=== PATIENT | male | born 1955 | race Hispanic/Latino ===

== ENCOUNTER 2022-05-17 07:38 | Day surgery (SDC) | payer OTHER ==
[2022-05-15 13:13] LABS: BASOPHILS % (AUTO) 0.5 % (0.0-5.0); EOSINOPHILS % (AUTO) 1.5 % (0.0-8.0); HEMATOCRIT 39.7 % (42-54); LYMPHOCYTES % (AUTO) 22.1 % (21.0-51.0); MEAN CORPUSCULAR HEMOGLOBIN 27.7 pg (27.0-33.0); MEAN CORPUSCULAR HGB CONC 31.7 g/dL (32.0-36.0); MEAN CORPUSCULAR VOLUME 87.3 fL (79-99); MONOCYTES % (AUTO) 6.4 % (3.0-13.0); NEUTROPHILS % (AUTO) 69.1 % (40.0-77.0); PLATELET COUNT (AUTO) 168 K/uL (130-400); RED BLOOD CELL COUNT(AUTO) 4.55 MIL/uL (4.50-6.20); RED CELL DISTRIBUTION WIDTH 13.8 % (11.0-15.5); WHITE BLOOD COUNT (AUTO) 7.8 K/uL (4.8-10.8)
[2022-05-15 13:19] LABS: APPEARANCE,URINE CLEAR (CLEAR); BILIRUBIN,URINE NEGATIVE (NEGATIVE); COLOR,URINE YELLOW (YELLOW); GLUCOSE, URINE (UA) >=1000 mg/dL (NEGATIVE); KETONES,URINE NEGATIVE (NEGATIVE); LEUKOCYTE ESTERASE ,URINE NEGATIVE (NEGATIVE); NITRATE,URINE NEGATIVE (NEGATIVE); OCCULT BLOOD,URINE SMALL (NEGATIVE); PROTEIN,URINE 100 mg/dL (NEGATIVE); UROBILINOGEN,URINE 0.2 mg/dL (0.2-1.0)
[2022-05-15 13:22] LABS: INR 0.96 (0.85-1.15); PROTHROMBIN TIME 10.5 SEC (9.6-11.6)
[2022-05-15 13:23] LABS: PARTIAL THROMBOPLASTIN TIME 24.8 SEC (26.3-35.5)
[2022-05-15 13:29] LABS: CREATININE 1.9 mg/dL (0.5-1.5); POTASSIUM 4.5 mmol/L (3.5-5.1)
[2022-05-15 13:42] LABS: B-TYPE NATRIURETIC PEPTIDE 277 pg/mL (0-100)
[2022-05-15 14:06] LABS: BACTERIA,URINE Rare /HPF (None Seen); RBC,URINE None Seen /HPF (0-1); SQUAMOUS EPITHELIAL CELL,UR 0-2 /HPF (0-2); WBC,URINE None Seen /HPF (0-1)
[2022-05-16 10:40] VITALS: BP 190/90
[~2022-05-17] VITALS: Ht 167.6 cm; Wt 86.1 kg
[2022-05-17] VITALS (10 sets, daily range): BP systolic 127–152; BP diastolic 52–79
[~2022-05-17 07:38] MED LIST: 0.9% NACL 500ML IV.SOLN 500 ML IV SCH; ATOR40TA69 PO; CILO100T PO; CLOP75TA32 PO; DAPA10TA PO; HUM10VIA6 SQ; INS7030 SQ; LISI2.5T13 PO; METF-444 PO
[2022-05-17] MEDS ORDERED: 0.9%NACL 1000ML 1,000 ML IV ONE (08:24)
[2022-05-17] MEDS ORDERED: FENTANYL CITRATE PF 50 MCG/1 ML 2ML VIAL ONE (11:15)
[2022-05-17] MEDS ORDERED: NITROGLYCERIN 50MG VIAL ONE (11:15)
[2022-05-17] MEDS ORDERED: IODIXANOL 320 MG/ML 100 ML VIAL ONE (11:15)
[2022-05-17] MEDS ORDERED: MIDAZOLAM HCL 1 MG/ML 2ML VIAL ONE (11:15)
[2022-05-17] MEDS ORDERED: LIDOCAINE HCL 400MG/20ML VIAL ONE (11:16)
[2022-05-17] MEDS ORDERED: DEXTROSE 50%-WATER 50 ML DISP.SYRIN IV PRN (13:30)
[2022-05-17] MEDS ORDERED: 0.9%NACL 1000ML 1,000 ML IV SCH (13:30)
[2022-05-17] MEDS ORDERED: GLUCAGON 1MG KIT 1 MG ML IM PRN (13:30)
== END 2022-05-17 17:50 | disposition home or self-care (01) ==
LOC: DAH 07:38
PROVIDERS: ATTEND Internal Medicine
DX: I70.211 Atherosclerosis of native arteries of extremities with intermittent claudication, right leg (principal); I25.10 Atherosclerotic heart disease of native coronary artery without angina pectoris; E11.51 Type 2 diabetes mellitus with diabetic peripheral angiopathy without gangrene; E11.22 Type 2 diabetes mellitus with diabetic chronic kidney disease; I12.9 Hypertensive chronic kidney disease with stage 1 through stage 4 chronic kidney disease, or unspecified chronic kidney disease; N18.30 Chronic kidney disease, stage 3 unspecified; E66.9 Obesity, unspecified; I44.7 Left bundle-branch block, unspecified; E78.5 Hyperlipidemia, unspecified; Z79.899 Other long term (current) drug therapy; Z79.01 Long term (current) use of anticoagulants; Z79.4 Long term (current) use of insulin; Z79.82 Long term (current) use of aspirin; Z68.31 Body mass index [BMI] 31.0-31.9, adult; Z95.0 Presence of cardiac pacemaker; Z82.49 Family history of ischemic heart disease and other diseases of the circulatory system
CPT/HCPCS: 80048; 83880; 85025; 85610; 85730; 81001; 36415; 71045; 93005; 75716; 36246; 82948 ×2; C1887; C1894 ×2; C1769; J3010; J3490 ×2; J7030; J2250; J1644; Q9967; A4215; A4222; A4221; A4663; A4216; A4606; A4223 ×3; 75630; 96360; 96361; 99156; 99157

== ENCOUNTER → 2022-11-20 | Outpatient (CLI) | payer OTHER ==
[~2022-11-20] MED LIST changes: -0.9% NACL 500ML IV.SOLN 500 ML IV SCH; +ASPI-1012 PO; -CILO100T PO; -CLOP75TA32 PO; +DULO30CA52 PO; -LISI2.5T13 PO; +LISI20TA24 PO; +REGADENOSON 0.4 MG/5 ML PF SYG IVP SCH; +RIVA2.5T PO
== END | disposition home or self-care (01) ==
LOC: SHCH 07:50
PROVIDERS: ATTEND Internal Medicine Cardiovascular Disease
DX: I11.0 Hypertensive heart disease with heart failure (principal); I50.20 Unspecified systolic (congestive) heart failure; R94.39 Abnormal result of other cardiovascular function study; I25.10 Atherosclerotic heart disease of native coronary artery without angina pectoris; I73.9 Peripheral vascular disease, unspecified; E78.5 Hyperlipidemia, unspecified; E11.9 Type 2 diabetes mellitus without complications; E66.9 Obesity, unspecified; Z68.32 Body mass index [BMI] 32.0-32.9, adult; Z95.1 Presence of aortocoronary bypass graft; Z79.01 Long term (current) use of anticoagulants; Z79.899 Other long term (current) drug therapy
CPT/HCPCS: 78452; 96374; 93017; J2785; A9500 ×2

== ENCOUNTER → 2023-01-24 | Outpatient (CLI) | payer OTHER ==
[~2023-01-24] MED LIST changes: -DAPA10TA PO; -HUM10VIA6 SQ; -LISI20TA24 PO; +METO25TA3 PO; -REGADENOSON 0.4 MG/5 ML PF SYG IVP SCH; -RIVA2.5T PO
[2023-01-24 12:30] LABS: CREATININE 2.5 mg/dL (0.5-1.5); POTASSIUM 3.8 mmol/L (3.5-5.1)
== END | disposition home or self-care (01) ==
LOC: LAB 09:37
PROVIDERS: ATTEND Internal Medicine Cardiovascular Disease
DX: I50.22 Chronic systolic (congestive) heart failure (principal)
CPT/HCPCS: 36415; 80048

== ENCOUNTER → 2023-03-07 | Outpatient (CLI) | payer OTHER | END | disposition home or self-care (01) | LOC: SHCH 08:19 | PROVIDERS: ATTEND Internal Medicine Cardiovascular Disease | DX: I11.9 Hypertensive heart disease without heart failure (principal); I50.21 Acute systolic (congestive) heart failure; E78.5 Hyperlipidemia, unspecified | CPT/HCPCS: 93306 ==

== ENCOUNTER → 2023-04-04 | Outpatient (CLI) | payer OTHER ==
[2023-04-04 12:54] LABS: CREATININE 2.4 mg/dL (0.5-1.5)
[2023-04-04 12:59] LABS: POTASSIUM 6.7 mmol/L (3.5-5.1)
== END | disposition home or self-care (01) ==
LOC: LAB 09:43
PROVIDERS: ATTEND Internal Medicine Cardiovascular Disease
DX: I50.22 Chronic systolic (congestive) heart failure (principal); I50.21 Acute systolic (congestive) heart failure
CPT/HCPCS: 36415; 80048; 83880

== ENCOUNTER → 2023-04-10 | Outpatient (CLI) | payer OTHER ==
[2023-04-10 16:30] LABS: CREATININE 2.9 mg/dL (0.5-1.5); POTASSIUM 5.6 mmol/L (3.5-5.1)
== END | disposition home or self-care (01) ==
LOC: LAB 15:00
PROVIDERS: ATTEND Internal Medicine Cardiovascular Disease
DX: I25.10 Atherosclerotic heart disease of native coronary artery without angina pectoris (principal); I10 Essential (primary) hypertension
CPT/HCPCS: 36415; 80048

== ENCOUNTER → 2023-07-04 | Outpatient (CLI) | payer OTHER ==
[2023-07-04 12:40] LABS: CREATININE 2.6 mg/dL (0.5-1.5)
[2023-07-04 12:45] LABS: POTASSIUM 6.3 mmol/L (3.5-5.1)
== END | disposition home or self-care (01) ==
LOC: LAB 09:56
PROVIDERS: ATTEND Internal Medicine Cardiovascular Disease
DX: I50.22 Chronic systolic (congestive) heart failure (principal)
CPT/HCPCS: 36415; 80048; 83880

== ENCOUNTER → 2024-07-21 | Outpatient (CLI) | payer OTHER ==
[~2024-07-21] MED LIST changes: +FURO20TA4 PO
== END | disposition home or self-care (01) ==
LOC: SHCH 09:33
PROVIDERS: ATTEND Internal Medicine Cardiovascular Disease
DX: I87.2 Venous insufficiency (chronic) (peripheral) (principal); I73.9 Peripheral vascular disease, unspecified
CPT/HCPCS: 93925; 93970

== ENCOUNTER → 2024-09-23 | Outpatient (CLI) | payer OTHER | END | disposition home or self-care (01) | LOC: SHCH 13:57 | PROVIDERS: ATTEND Internal Medicine Cardiovascular Disease | DX: I25.10 Atherosclerotic heart disease of native coronary artery without angina pectoris (principal); R06.09 Other forms of dyspnea | CPT/HCPCS: 93306 ==

== ENCOUNTER → 2024-10-27 | Outpatient (CLI) | payer OTHER ==
[2024-10-27 12:24] LABS: BASOPHILS # (AUTO) 0.05 K/uL (0.00-0.20); BASOPHILS % (AUTO) 0.7 % (0.0-5.0); EOSINOPHILS # (AUTO) 0.15 K/uL (0.00-0.70); EOSINOPHILS % (AUTO) 2.2 % (0.0-8.0); IMMATURE GRANULOCYTE ABSOLUTE 0.01 K/uL (0-1); LYMPHOCYTES # (AUTO) 1.4 K/uL (1.0-4.8); LYMPHOCYTES % (AUTO) 19.9 % (21.0-51.0); MEAN CORPUSCULAR HEMOGLOBIN 29.3 pg (27.0-33.0); MEAN CORPUSCULAR HGB CONC 30.8 g/dL (32.0-36.0); MEAN CORPUSCULAR VOLUME 95.1 fL (79-99); MONOCYTES # (AUTO) 0.5 K/uL (0.1-1.0); MONOCYTES % (AUTO) 6.6 % (3.0-13.0); NEUTROPHILS # (AUTO) 4.9 K/uL (1.8-7.7); NEUTROPHILS % (AUTO) 70.5 % (40.0-77.0); PLATELET COUNT (AUTO) 151 K/uL (130-400); RED CELL DISTRIBUTION WIDTH 14.2 % (11.0-15.5)
[2024-10-27 12:42] LABS: ALBUMIN 2.7 g/dL (3.5-5.0); BILIRUBIN,TOTAL 0.6 mg/dL (0.2-1.0); CREATININE 3.2 mg/dL (0.5-1.3); POTASSIUM 4.7 mmol/L (3.5-5.1); TOTAL PROTEIN, SERUM 7.3 g/dL (6.0-8.3)
== END | disposition home or self-care (01) ==
LOC: LAB 08-20 09:30
PROVIDERS: ATTEND Internal Medicine Cardiovascular Disease
DX: Z01.812 Encounter for preprocedural laboratory examination (principal); I50.20 Unspecified systolic (congestive) heart failure; I87.1 Compression of vein; I87.2 Venous insufficiency (chronic) (peripheral)
CPT/HCPCS: 36415; 80053; 83880; 85025

== ENCOUNTER 2025-06-03 06:52 | Inpatient (IN) | payer OTHER ==
[2025-06-03] VITALS (23 sets, daily range): BP systolic 118–152; BP diastolic 58–75; PULSE 56–70; RESP 14–19; TEMP 97.4–99; O2SAT 99
[~2025-06-03] VITALS: Ht 165.1 cm; Wt 89.4 kg
[~2025-06-03 06:52] MED LIST changes: +AMLO2.5T4 PO; -DULO30CA52 PO; -INS7030 SQ; +ISOS30TA92 PO; -METF-444 PO; +SACU1TAB7 PO
--- NOTE | 2025-06-03 07:18 | ERN ---
General Chief Complaint: Dialysis Problem Stated Complaint: NEED DIALYSIS Time Seen by MD: 06:50 Source: patient, family History of Present Illness Initial Comments Patient is a 70-year-old male with a history of liver cirrhosis coming in due to worsening kidney function. Per patient he was sent over by assembler tubing for possible dialysis. Patient states that he is retaining more fluid in his abdominal cavity to be to liver cirrhosis. 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 12/04/22 Reported Medications Sacubitril/Valsartan (Entresto 49 mg-51 mg Tablet) 49 Mg-51 Mg Tablet, 1 TAB PO BID for 30 Days, #60 TAB 0 Refills 02/09/25 Isosorbide Mononitrate (Isosorbide Mononitrate ER) 30 Mg Tab.er.24h, 1 TAB PO DAILY for 30 Days, #30 TAB 0 Refills 02/09/25 Amlodipine Besylate (Amlodipine Besylate) 2.5 Mg Tablet, 2.5 MG PO DAILY, TAB 02/09/25 Furosemide (Furosemide) 20 Mg Tablet, 40 MG PO DAILY, TAB 04/14/24 Aspirin (ASPIRIN) 325 Mg Tablet, 81 MG PO DAILY, TAB 11/30/22 Atorvastatin Calcium (LIPITOR) 80 Mg Tablet, 80 MG PO DAILY, TAB 05/16/22 Past Medical History Past Medical History: Diabetes-Type II, High Cholesterol, Heart Disease, Hypertension Past Surgical History: CABG, Other Surgical History Other: LT SHOULDER SX ROS Dictation CONSTITUTIONAL: No chills, no fever, no weakness, no diaphoresis, no malaise. HEAD/FACE: No signs of trauma. EENT: No eye pain, no blurred vision, no tearing, no double vision, no ear pain, no ear discharge, no nose pain, no nasal congestion, no throat pain, no throat swelling, no mouth pain. RESPIRATORY: No cough, no orthopnea, no SOB, no stridor, no wheezing. CARDIOVASCULAR: No chest pain, no edema, no palpitations, no syncope. GASTROINTESTINAL/ABDOMINAL: No abdominal pain, no constipation, no diarrhea, no nausea, no vomiting. GENITOURINARY: No abnormal discharge, no dysuria, no frequent urination, no hematuria. No complaints of pain in the genitals. MUSCULOSKELETAL: No back pain, no gout, no joint pain, no joint swelling, no muscle pain, no muscle stiffness, no neck pain. INTEGUMENTARY: No change in color, no change in hair/nails, no dryness, no lesion, no lumps, no rash. NEUROLOGICAL/PSYCH: No anxiety, not depressed, no emotional problem, no hea dache, no numbness, no pre-existing deficit, no history of seizures, no tremors, no weakness. HEMATOLOGIC/LYMPHATIC: Not anemic, no history of blood clots, no apparent bleeding, no bruising, glands not swollen. All Systems Negative, Except as Noted. Physical Exam Physical Exam Dictation VITAL SIGNS: Reviewed. GENERAL APPEARANCE: Alert, oriented x3, no acute distress, obese. HEAD AND FACE: Non-traumatic. EYES: PERRL, pink conjunctivas, eyelid no trauma, anterior chamber clear. EARS: Pinnas intact and no signs of trauma or erythema. Ear canals clear and no discharge. TMs no erythema. NOSE: No discharge, no bleeding. OROPHARYNX: Mouth normal, teeth no caries, tongue pink. Pharynx clear, no erythema. Tonsils no exudates, no abscesses noted. Mucous membrane moist. NECK: Supple, non-tender, no thyromegaly, no masses, no JVD, no bruits. BREAST: Deferred. CHEST: No tenderness, no crepitus, no paradoxical movement, no retractions. LUNGS: Clear, well-ventilated, symmetric, no rales, no wheezing, no rhonchi, no stridor, good breath sounds bilaterally. HEART: Regular rate, regular rhythm, no murmur, no gallops. VASCULAR: No peripheral edema. ABDOMEN: Soft, positive bowel sounds, distended, no guarding, nontender, no rebound, no masses no hepatomegaly, no splenomegaly, no Barriso's sign, no hernias. RECTAL: Deferred. GENITAL: Deferred. NEUROLOGICAL: Normal speech, gross motor function intact, gross sensory function intact. MUSCULOSKELETAL: Neck nontender, full range of motion, back nontender, full range of motion. EXTREMITIES: Nontender, full range of motion. SKIN: Color pink, dry, no turgor, no rash, no lacerations, no abrasions, no contusions. LYMPHATICS: Deferred. Results Laboratory and Microbiology Lab and Micro Result Laboratory Tests Test 06/03/25 08:17 06/03/25 08:38 White Blood Count 6.9 K/uL (4.8-10.8) Red Blood Count 3.59 MIL/uL (4.50-6.20) L Hemoglobin 10.4 g/dL (14.0-18.0) L Hematocrit 33.0 % (42-54) L Mean Corpuscular Volume 91.9 fL (79-99) Mean Corpuscular Hemoglobin 29.0 pg (27.0-33.0) Mean Corpuscular Hemoglobin Concent 31.5 g/dL (32.0-36.0) L Red Cell Distribution Width 15.3 % (11.0-15.5) Platelet Count 197 K/uL (130-400) Mean Platelet Volume 11.6 fL (7.5-10.5) H Immature Granulocyte % (Auto) 0.4 % (0-1) Neutrophils (%) (Auto) 72.8 % (40.0-77.0) Lymphocytes (%) (Auto) 14.6 % (21.0-51.0) L Monocytes (%) (Auto) 8.1 % (3.0-13.0) Eosinophils (%) (Auto) 3.2 % (0.0-8.0) Basophils (%) (Auto) 0.9 % (0.0-5.0) Neutrophils # (Auto) 5.0 K/uL (1.8-7.7) Lymphocytes # (Auto) 1.0 K/uL (1.0-4.8) Monocytes # (Auto) 0.6 K/uL (0.1-1.0) Eosinophils # (Auto) 0.22 K/uL (0.00-0.70) Basophils # (Auto) 0.06 K/uL (0.00-0.20) Absolute Immature Granulocyte (auto 0.03 K/uL (0-1) Nucleated Red Blood Cells 0.0 % (0.0-0.19) Prothrombin Time 11.2 SEC (9.6-11.6) Prothromb Time International Ratio 1.06 (0.85-1.15) Activated Partial Thromboplast Time 24.5 SEC (26.3-35.5) L Troponin I High Sensitivity 53 ng/L (4-75) Sodium Level 140 mmol/L (136-145) Potassium Level 4.1 mmol/L (3.5-5.1) Chloride Level 105 mmol/L (101-111) Carbon Dioxide Level 25 mmol/L (21-32) Blood Urea Nitrogen 100 mg/dL (7-18) *H Creatinine 4.0 mg/dL (0.5-1.3) H Glomerular Filtration Rate Calc 15 mL/min (>90) Random Glucose 155 mg/dL (70-105) H Total Calcium 7.7 mg/dL (8.5-10.1) L Magnesium Level 2.30 mg/dL (1.80-2.40) Total Creatine Kinase 68 U/L (21-232) # Labs Reviewed?: Yes EKG/XRAY/US/CT/MRI EKG Comment 06/03/2025 time 7:36 a.m. Ventricular rate 61 Left bundle-branch block CO [address] wave elevation or depression MDM MDM: Differential diagnosis: End-stage renal disease requiring dialysis, history of liver cirrhosis, ascites, Rationale: Tests considered and ordered secondary to shared decision making include: labs, ECG and radiology Previous outside records reviewed: Old ER visits. Risk of complication and/or morbidity or mortality of patient management: None Medications-Per medication reconciliation Need for hospitalization: Patient does meet criteria for hospitalization. Need for emergency major/minor surgery: No There are no social concerns with this patient. Prescription drug management Prescriptions will include symptomatic care Patient's prior external medical records from other ER visits were reviewed by me as indicated. Prior testing and results from previous visits were reviewed. Prior tests were taken into account with medical decision making and resource utilization, independent historian/historians were used to obtain complete medic al history. I independently interpreted the test that were performed, results were reviewed by me and considered findings on radiology if ordered. Medical management and examination interpretation discussions were had by me with other qualified healthcare professionals as indicated for the patient's care. He will be admitted under the care of Dr. Lorena esteban this patient's assembler tubing spoke to Dr. Guerrier will follow pt . ED Course Orders Procedure Category Date Status Time Cbc With Differential LAB 06/03/25 Complete 07:26 Chest 1vw RAD 06/03/25 Resulted 07:26 12 Lead Ekg Tracing- EKG 06/03/25 Logged Technical 07:26 Troponin I High LAB 06/03/25 Complete Sensitivity 07:26 Basic Metabolic Panel LAB 06/03/25 Complete 08:33 Creatine Kinase, Total LAB 06/03/25 Complete 08:33 Magnesium LAB 06/03/25 Complete 08:33 3D Specialist Procedure CATH 06/03/25 Logged Request 09:07 Pt And Ptt LAB 06/03/25 Complete 09:07 3D Specialist Procedure CATH 06/03/25 Logged Request 12:30 Obtain Consent For CPOE 06/03/25 Transmitted Hemodialysi 09:17 Obtain Consent For: CPOE 06/03/25 Transmitted 09:17 Hemodialysis Nurings DIAL 06/03/25 Transmitted Orders 09:17 Vital Signs Date Time Temp Pulse Resp B/P (MAP) Pulse Ox O2 Delivery O2 Flow Rate FiO2 06/03/25 08:22 98.1 66 18 140/65 99 Room Air* 0 21 06/03/25 06:58 98.6 66 20 131/63 97 0 DX & DISP Disposition: Inpatient Decision to Admit Time: 09:49 Departure Impression: Primary Impression: End stage renal disease Additional Impression: Worsening renal function Condition: Stable Referrals: ZACARIAS MOSELEY M.D. (PCP) JANICE MARTINEZ MD Jun 03, 2025 07:18
[2025-06-03 08:33] LABS: IMMATURE GRANULOCYTE ABSOLUTE 0.03 K/uL (0-1); NUCLEATED RED BLOOD CELLS 0.0 % (0.0-0.19); PLATELET COUNT (AUTO) 197 K/uL (130-400); RED BLOOD CELL COUNT(AUTO) 3.59 MIL/uL (4.50-6.20); RED CELL DISTRIBUTION WIDTH 15.3 % (11.0-15.5); WHITE BLOOD COUNT (AUTO) 6.9 K/uL (4.8-10.8)
[2025-06-03 09:07] LABS: CREATINE KINASE, TOTAL 68.0 U/L (21-232); CREATININE 4.0 mg/dL (0.5-1.3); GLOMERULAR FILTR. RATE CALC 15.0 mL/min (>90); GLUCOSE,RANDOM 155.0 mg/dL (70-105); SODIUM SERUM 140.0 mmol/L (136-145)
[2025-06-03 09:10] LABS: UREA NITROGEN, BLOOD 100.0 mg/dL (7-18)
--- NOTE | 2025-06-03 09:22 | HMCIMG ---
EXAM: CR Chest, 1 View. CLINICAL HISTORY: sob COMPARISON: None provided. FINDINGS: LUNGS: The lungs show no infiltrate or other acute finding. PLEURAL SPACES: No evidence of pleural effusion or pneumothorax. MEDIASTINUM: Pacemaker leads overlie the right atrium and right ventricle. Cardiac size and mediastinal contours within normal limits. BONES: No acute osseous abnormality. IMPRESSION: No acute cardiopulmonary pathology is evident. /[place]
[2025-06-03 09:35] LABS: INR 1.06 (0.85-1.15)
--- NOTE | 2025-06-03 10:13 | EKG ---
[facility] Test Date: 2025-06-03 Test Time: 07:36:50 Pat Name: PRIYA MENA Department: [facility] Room: ED Gender: M Rn Procedure: 9920 : 1955 Requested By: JANICE MARTINEZ Order Number: [id number] Reading MD: Lesa Guadalupe Measurements Intervals [place] Rate: 61 P: 0 OK: 79 QRS: -52 QRSD: 126 T: 140 QT: 446 QTc: 451 Interpretive Statements Atrial-paced complexes Left bundle branch block Compared to ECG 02/09/2025 10:56:32 Left bundle-branch block now present Sinus rhythm no longer present Intraventricular conduction delay no longer present Myocardial infarct finding no longer present Electronically Signed On 06-03-2025 11:31:51 CDT by Lesa Guadalupe Please click the below link to view image of tracing.
[2025-06-03] MEDS ORDERED: ARTIFICAL TEARS SOL 15 ML OP PRN (10:30)
[2025-06-03] MEDS ORDERED: NITROGLYCERIN 0.4 MG SL TAB SL PRN (10:30)
[2025-06-03] MEDS ORDERED: LIDOCAINE HCL 2% VISCOUS 30 ML, MAG/ALUM/SIMETH 30ML 30 ML, DICYCLOMINE HCL 20 MG PO PRN (10:30)
[2025-06-03] MEDS ORDERED: LACTULOSE 20 GM/30 ML UDCUP PO PRN (10:30)
--- NOTE | 2025-06-03 10:36 | HP ---
[facility] HISTORY & PHYSICAL Date Patient Seen: Jun 03, 2025 Time of Visit: 10:29 Supervising Physician: Dr. David Elder Primary Care Physician: Dr. Pat Richey Outpatient Specialists: Dr. Carrillo (Nephrology) Inpatient Consults: Dr. Carrillo (Nephrology) PROBLEM LIST: BRYCE on CKD stage V Chronic combined CHF, LVEF 25% per Echo on 01/2025 Anasarca due to above Ascites with recent paracentesis on 06/01/25 with 7 liters removed Chronic atrial fibrillation on Eliquis (last dose on 05/30/25) DM type 2 AICD status Hypertension Hyperlipidemia Morbid obesity, BMI 34 HPI: 70-year old male with past medical history of CKD, DM type 2, HTN, HLD presented to the ER after being sent by motor vehicle assembly supervisor for possible hemodialysis. On arrival to the ER, creatinine 4, GFR 15 and BUN 100. CXR negative for findings. Upon assessment, patient is AAOX3. Currently on room air. Noted to have anasarca and fluid overload. Nephrology already ordered permcath to be inserted by dental laboratory assistant. Patient states he saw his conference coordinator Dr. Mcadams one week ago and had second paracentesis this past Sunday with 7 liters removed. Denies any chest pain, abdominal pain, nausea or vomiting. Patient will be admitted for treatment, goals of care explained, verbalized understanding. Plan: Admit to med/surg with tele Consult nephrology, already ordered permcath AM labs Resume home medications once reconciled CT abdomen/pelvis to evaluate for ascites PAST MEDICAL HX: see above PAST SURGICAL HX: noncontributory SOCIAL HISTORY: No tobacco, ETOH, or illicit drug use Coded Allergies: No Known Drug Allergies (Unverified Allergy, Unknown, 12/22/16) REVIEW OF SYSTEMS: 12 point ROS reviewed with patient. Pertinent positives mentioned above. Otherwise negative. PHYSICAL EXAM: GENERAL: alert, weak, awake oriented x 3 HEENT: EOMI, Sclera non icteric, moist mucosa NECK: Supple, no JVD, trachea midline LUNGS: Clear breath sounds bilaterally. No wheezes HEART: Regular rate and rhythm. Normal S1 and S2, without murmurs ABD: Abdomen soft, nontender. Bowel sounds present EXT: No clubbing cyanosis or edema NEURO: Alert and oriented to person, follows commands Vital Signs (last 8hr) Date Time Temp Pulse Resp B/P (MAP) Pulse Ox O2 Delivery O2 Flow Rate FiO2 06/03/25 08:22 98.1 66 18 140/65 99 Room Air* 0 21 06/03/25 06:58 98.6 66 20 131/63 97 0 LABS: Hematology Labs: Test 06/03/25 08:17 Range/Units White Blood Count 6.9 4.8-10.8 K/uL Red Blood Count 3.59 L 4.50-6.20 MIL/uL Hemoglobin 10.4 L 14.0-18.0 g/dL Hematocrit 33.0 L 42-54 % Mean Corpuscular Volume 91.9 79-99 fL Mean Corpuscular Hemoglobin 29.0 27.0-33.0 pg Mean Corpuscular Hemoglobin Concent 31.5 L 32.0-36.0 g/dL Red Cell Distribution Width 15.3 11.0-15.5 % Platelet Count 197 130-400 K/uL Mean Platelet Volume 11.6 H 7.5-10.5 fL Immature Granulocyte % (Auto) 0.4 0-1 % Neutrophils (%) (Auto) 72.8 40.0-77.0 % Lymphocytes (%) (Auto) 14.6 L 21.0-51.0 % Monocytes (%) (Auto) 8.1 3.0-13.0 % Eosinophils (%) (Auto) 3.2 0.0-8.0 % Basophils (%) (Auto) 0.9 0.0-5.0 % Neutrophils # (Auto) 5.0 1.8-7.7 K/uL Lymphocytes # (Auto) 1.0 1.0-4.8 K/uL Monocytes # (Auto) 0.6 0.1-1.0 K/uL Eosinophils # (Auto) 0.22 0.00-0.70 K/uL Basophils # (Auto) 0.06 0.00-0.20 K/uL Absolute Immature Granulocyte (auto 0.03 0-1 K/uL Nucleated Red Blood Cells 0.0 0.0-0.19 % Chemistry Labs: Test 06/03/25 08:38 06/03/25 08:17 Range/Units Sodium Level 140 136-145 mmol/L Potassium Level 4.1 3.5-5.1 mmol/L Chloride Level 105 101-111 mmol/L Carbon Dioxide Level 25 21-32 mmol/L Blood Urea Nitrogen 100 *H 7-18 mg/dL Creatinine 4.0 H 0.5-1.3 mg/dL Glomerular Filtration Rate Calc 15 >90 mL/min Random Glucose 155 H 70-105 mg/dL Total Calcium 7.7 L 8.5-10.1 mg/dL Magnesium Level 2.30 1.80-2.40 mg/dL Total Creatine Kinase 68 # 21-232 U/L Troponin I High Sensitivity 53 4-75 ng/L Coagulation Labs: Test 06/03/25 08:17 Range/Units Prothrombin Time 11.2 9.6-11.6 SEC Prothromb Time International Ratio 1.06 0.85-1.15 Activated Partial Thromboplast Time 24.5 L 26.3-35.5 SEC DIAGNOSTICS / RADIOLOGY RESULTS: REASON: sob ORDERING PHYSICIAN: JANICE MARTINEZ MD PROCEDURE: CXR1VW - CHEST 1VW EXAM: CR Chest, 1 View. CLINICAL HISTORY: sob COMPARISON: None provided. FINDINGS: LUNGS: The lungs show no infiltrate or other acute finding. PLEURAL SPACES: No evidence of pleural effusion or pneumothorax. MEDIASTINUM: Pacemaker leads overlie the right atrium and right ventricle. Cardiac size and mediastinal contours within normal limits. BONES: No acute osseous abnormality. IMPRESSION: No acute cardiopulmonary pathology is evident. PLAN NEURO: Minimize central acting medications as possible. Maintain fall precautions, adequate lighting during the day PULMONARY: Supplemental 02 as needed. Maintain aspiration precautions at all times CARDIOVASCULAR: Follow hemodynamics. Vital signs per facility protocol GI & NUTRITION: Continue with nutritional support. Continue stool softeners and laxatives as needed. KIDNEYS & ELECTROLYTES: Strict monitoring of intake, output and overall fluid balance. Avoid nephrotoxic medications to the extent possible. Medications to be dosed according to renal function. Monitor electrolytes and replace as needed ENDOCRINE: Maintain blood glucose between 100-180 at all times. Hypoglycemia protocol in place INFECTIOUS DISEASE: Trend temperature, WBC and procalcitonin level Follow cultures, deescalate antibiotics as soon as possible. Panculture if new onset fever ONCOLOGY/HEMATOLOGY/COAGULATION: Monitor for s/s of bleeding Monitor hemoglobin, coagulation studies as needed SKIN: Pressure ulcer prevention per facility protocol Specialty mattress ORTHO/REHAB: Continue PT/OT Prophylaxis: Continue GI and DVT prophylaxis Code Status: Full Resuscitation Disposition: CHAITANYA CASTELLANOS NP Jun 03, 2025 10:36
--- NOTE | 2025-06-03 11:56 | NUR ---
Cory martínez in [facility] - 06/03/25 at 1244 by MARC CALLED [facility] TO SET UP TRANSFER FOR PT.
[2025-06-03] MEDS ORDERED: LIDOCAINE HCL 400MG/20ML VIAL ONE (12:03)
[2025-06-03] MEDS ORDERED: IOHEXOL-350 50ML VIAL IV ONE (12:03)
[2025-06-03] MEDS ORDERED: MIDAZOLAM HCL 1 MG/ML 2ML VIAL ONE (12:18)
--- NOTE | 2025-06-03 12:31 | NUR ---
REPORT GIVEN TO NURSE NADYA
[2025-06-03] MEDS ORDERED: APIX5TAB PO (14:59)
[2025-06-03] MEDS ORDERED: HYDR50TA37 PO (14:59)
[2025-06-03] MEDS ORDERED: SEVE800PW PO (14:59)
[2025-06-03] MEDS ORDERED: CLOP75TA32 PO (14:59)
[2025-06-03] MEDS: 0.9%NACL 1000ML 1,000 ML IV SCH (17:44)
[2025-06-03 18:40] LABS: CREATININE 3.5 mg/dL (0.5-1.3); GLOMERULAR FILTR. RATE CALC 18.0 mL/min (>90); LDL DIRECT 59.0 mg/dL (0-99)
[2025-06-03 18:43] LABS: UREA NITROGEN, BLOOD 84.0 mg/dL (7-18)
[2025-06-03 18:51] LABS: HIV 1&2 ANTIBODY Non-Reactive (Negative)
[2025-06-04] VITALS (18 sets, daily range): BP systolic 127–153; BP diastolic 60–82; PULSE 60–72; RESP 14–18; TEMP 97.6–98.7
[2025-06-04 04:04] LABS: IMMATURE GRANULOCYTE ABSOLUTE 0.01 K/uL (0-1); NUCLEATED RED BLOOD CELLS 0.0 % (0.0-0.19); PLATELET COUNT (AUTO) 133 K/uL (130-400); RED BLOOD CELL COUNT(AUTO) 3.01 MIL/uL (4.50-6.20); RED CELL DISTRIBUTION WIDTH 15.2 % (11.0-15.5); WHITE BLOOD COUNT (AUTO) 5.7 K/uL (4.8-10.8)
[2025-06-04 04:10] LABS: HEPATITIS B CORE AB TOTAL Non-Reactive (Nonreactive); HEPATITIS B SURFACE ANTIBODY Negative (Reactive)
[2025-06-04 04:23] LABS: % IRON SATURATION 16.4 % (30-44); IRON, SERUM 22.0 mcg/dL (65-175)
[2025-06-04 04:32] LABS: ASPARTATE AMINOTRANSFERASE 24.0 U/L (10-37); CREATININE 3.7 mg/dL (0.5-1.3); GLOMERULAR FILTR. RATE CALC 17.0 mL/min (>90); GLUCOSE,RANDOM 111.0 mg/dL (70-105); PHOSPHORUS 5.4 mg/dL (2.5-4.9); SODIUM SERUM 138.0 mmol/L (136-145); TOTAL PROTEIN, SERUM 5.9 g/dL (6.0-8.3)
[2025-06-04 04:47] LABS: UREA NITROGEN, BLOOD 86.0 mg/dL (7-18)
--- NOTE | 2025-06-04 07:02 | CCATH ---
PROCEDURE: Ultrasound and fluoroscopy-guided placement of Permacath, it is 15.5-Ukrainian, 24-cm length for chronic hemodialysis catheter. ANESTHESIA: The patient was given, prior to the procedure, 50 mcg of fentanyl and 200 mg of Versed. DESCRIPTION OF PROCEDURE: The right internal jugular and right neck region was prepped and draped in the usual sterile technique. 1% Xylocaine was used for local anesthetic. Under ultrasound guidance, using a micropuncture kit, the right internal jugular vein was accessed. An angiographic wire was introduced. This was exchanged and dilated to approximately 16-Ukrainian dilator. A tunneling was performed in the right midclavicular region to the access entry site and a DuraMax chronic hemodialysis catheter was tunneled into the puncture site. This was introduced through a peel-away sheath into the right internal jugular vein with the tip in the cavoatrial junction to be in satisfactory position. The catheter was anchored in the right upper thorax. The right neck entry site was closed with 3-0 silk sutures. The catheter appears to be in satisfactory position. The catheter was flushed with heparin. The hemodialysis catheter is amenable for hemodialysis anytime it is required. TID: [id number] RECEIPT: [id number]
--- NOTE | 2025-06-04 07:04 | CONS ---
REASON FOR CONSULTATION: Renal failure. HISTORY OF PRESENT ILLNESS: A 70-year-old male with history of diabetes mellitus and hypertension. He has a history of known coronary artery disease status post AICD placement in the past. The patient has a history of known renal dysfunction. The patient presents with increasing shortness of breath and anasarca. The patient with advanced renal dysfunction. The patient now has agreed to proceed with dialysis and he is being seen in consultation for all of the above. PAST MEDICAL HISTORY: Diabetes mellitus, hypertension, coronary artery disease. PAST SURGICAL HISTORY: AICD. SOCIAL HISTORY: He lives independently. There is no active tobacco use. FAMILY HISTORY: There is no renal disease in the family. ALLERGIES: There are no allergies. MEDICATIONS: Medications are all reviewed. REVIEW OF SYSTEMS: GENERAL: He is feeling weak and tired. HEENT: No change in vision. No change in hearing. CARDIOVASCULAR: There is no current chest pains, palpitations. PULMONARY: There is no shortness of breath. GASTROINTESTINAL: The patient is tolerating diet. MUSCULOSKELETAL: Complains of weakness. NEUROLOGIC: No seizures or focal deficits. PSYCHIATRIC: No history of hallucinations or psychosis. ENDOCRINE: Diabetes mellitus. No history of thyroid disease. HEME: History of anemia. No history of malignancy. PHYSICAL EXAMINATION: VITAL SIGNS: Blood pressure 140/65, pulse 60s, afebrile. GENERAL: He is a chronically ill male, elderly lying in bed on the medical floor. HEENT: Head is atraumatic. Pupils are equal, roving to light. Oropharynx is without exudate. Nares clear. NECK: There is no JVP. There is no thyromegaly. CARDIOVASCULAR: Regular. There is no S3 or S4 gallop. LUNGS: Coarse with equal thoracic movement. ABDOMEN: Soft, nondistended, nontender. EXTREMITIES: He does have edema. NEUROLOGICAL: He is awake. He is alert. He is oriented. SKIN: Reveals no rash or nodules. BACK: There is no CVA tenderness. No back deformities. LABORATORY DATA: Sodium 140, potassium 4.1, BUN 100, creatinine 4. Hemoglobin 10, hematocrit 33. IMAGING STUDIES: Chest x-ray is noted. CT scan of the abdomen is pending. IMPRESSION: * Advanced renal dysfunction, uremia. * Diabetes mellitus. * Hypertension. * Coronary artery disease. PLAN: The patient presents with advanced renal dysfunction. The patient now is agreeable to proceed with dialysis. We have Interventional Radiology place a PermCath in anticipation of dialysis on the day of this consultation. We will continue to follow the patient closely. The patient can be started on erythropoietin injections for the anemia. All labs can be repeated in the morning. The patient eventually will be set up for outpatient dialysis. We will need Cardiology clearance for primary access and we will continue to follow closely. The patient with multiple questions, all of which were answered. TID: [id number] RECEIPT: [id number]
--- NOTE | 2025-06-04 09:00 | NUR ---
NOT GIVEN D/T PENDING HD
--- NOTE | 2025-06-04 09:07 | PN ---
DIALYSIS NOTE SUBJECTIVE: The patient was seen and evaluated on hemodialysis, prescription noted. OBJECTIVE: VITAL SIGNS: Blood pressure 127/64. CARDIOVASCULAR: Regular. LUNGS: Coarse. IMPRESSION: ESRD. PLAN: The patient will be setup for outpatient dialysis. The patient remains on IV iron as well as erythropoietin injections. The patient's nondominant arm preserved for future AV access. The patient will need cardiac clearance for the surgery. TID: [id number] RECEIPT: [id number]
--- NOTE | 2025-06-04 09:29 | NUR ---
DCP: HOME- US [facility]NAL [place] Pt reports he has not been feeling wells for the past few months and was aware that dialysis was a possibility. Pt states he had his first dialysis treatment yesterday and will need outpt HD. Pt signed consent for US RENAL in [place]. Pt prefers MWF if possible. [facility] made aware Pt lives a home with Coleen Zhang [phone]. Pt states has been assisting with ADLS, home management, meal prep and transportation these past few months. Pt uses a walker with seat and has grab bars in shower. No provider, HH or HD. PCP is J Luis Richey and uses the [facility] for rx medications. DCP home once HD set up. Addendum: 06/04/25 at 0937 by SHANTAL SALAZAR Amended: Links added.
[2025-06-04] MEDS ORDERED: COMPOUND IV MISC 1 EACH IVSOLN MISC PRN (09:30)
--- NOTE | 2025-06-04 12:18 | PN ---
[facility] PROGRESS NOTE Date Patient Seen: Jun 04, 2025 Time of Visit: 12:18 Supervising Physician: Dr. Ugo Brizuela Primary Care Physician: Dr. Pat Richey Outpatient Specialists: Dr. Carrillo (Nephrology) Inpatient Consults: Dr. Carrillo (Nephrology) PROBLEM LIST: BRYCE on CKD stage V S/P permcath placement by IR on 06/03/2025 with initiation of hemodialysis Chronic combined CHF, LVEF 25% per Echo on 01/2025 Anasarca due to above Liver cirrhosis, new diagnosis per CT abdomen Ascites with recent paracentesis on 06/01/25 with 7 liters removed Chronic atrial fibrillation on Eliquis (last dose on 05/30/25) DM type 2 AICD status Hypertension Hyperlipidemia Morbid obesity, BMI 34 INTERVAL HISTORY: Patient assessed at bedside. AAOX3. Currently on room air. Patient started on hemodialysis yesterday. Tolerated well. Pending to have second session today. CT abdomen/pelvis ordered showed ascites with liver cirrhosis. Hemoglobin decreased to 8.6 from 10.4, likely from permcath insertion site who has pressure dressing on. Denies any chest pain, abdominal pain, nausea or vomiting. at bedside. Plan: Possible paracentesis on Sunday if still has ascites Pending CTS for fistula vs graft Continue to hold Eliquis/Plavix Monitor for bleeding Fluid restriction 1.5L/day AM labs REVIEW OF SYSTEMS: 12 point ROS reviewed with patient. Pertinent positives mentioned above. Otherwise negative. PHYSICAL EXAM: GENERAL: alert, weak, awake oriented x 3 HEENT: EOMI, Sclera non icteric, moist mucosa NECK: Supple, no JVD, trachea midline LUNGS: Clear breath sounds bilaterally. No wheezes HEART: Regular rate and rhythm. Normal S1 and S2, without murmurs ABD: Abdomen soft, nontender. Bowel sounds present EXT: No clubbing cyanosis or edema NEURO: Alert and oriented to person, follows commands Vital Signs (last 8hr) Date Time Temp Pulse Resp B/P (MAP) Pulse Ox O2 Delivery O2 Flow Rate FiO2 06/04/25 11:40 98.2 65 16 133/60 98 Room Air 21 06/04/25 09:00 Room Air* 0 21 06/04/25 08:17 Room Air* 0 21 06/04/25 08:00 98.4 72 18 127/64 96 Room Air LABS: Hematology Labs: Test 06/04/25 03:35 Range/Units White Blood Count 5.7 4.8-10.8 K/uL Red Blood Count 3.01 L 4.50-6.20 MIL/uL Hemoglobin 8.6 L 14.0-18.0 g/dL Hematocrit 27.5 L 42-54 % Mean Corpuscular Volume 91.4 79-99 fL Mean Corpuscular Hemoglobin 28.6 27.0-33.0 pg Mean Corpuscular Hemoglobin Concent 31.3 L 32.0-36.0 g/dL Red Cell Distribution Width 15.2 11.0-15.5 % Platelet Count 133 # 130-400 K/uL Mean Platelet Volume 11.5 H 7.5-10.5 fL Immature Granulocyte % (Auto) 0.2 0-1 % Neutrophils (%) (Auto) 71.7 40.0-77.0 % Lymphocytes (%) (Auto) 14.5 L 21.0-51.0 % Monocytes (%) (Auto) 9.7 3.0-13.0 % Eosinophils (%) (Auto) 3.0 0.0-8.0 % Basophils (%) (Auto) 0.9 0.0-5.0 % Neutrophils # (Auto) 4.1 1.8-7.7 K/uL Lymphocytes # (Auto) 0.8 L 1.0-4.8 K/uL Monocytes # (Auto) 0.6 0.1-1.0 K/uL Eosinophils # (Auto) 0.17 0.00-0.70 K/uL Basophils # (Auto) 0.05 0.00-0.20 K/uL Absolute Immature Granulocyte (auto 0.01 0-1 K/uL Nucleated Red Blood Cells 0.0 0.0-0.19 % Chemistry Labs: Test 06/04/25 11:04 06/04/25 03:35 06/03/25 17:55 06/03/25 08:38 Range/Units Whole Blood Glucose 143 H 70-110 MG/DL Bedside Glucose Comment Notified Nurse Sodium Level 138 136-145 mmol/L Potassium Level 3.9 3.5-5.1 mmol/L Chloride Level 105 101-111 mmol/L Carbon Dioxide Level 25 21-32 mmol/L Blood Urea Nitrogen 86 *H 7-18 mg/dL Creatinine 3.7 H 0.5-1.3 mg/dL Glomerular Filtration Rate Calc 17 >90 mL/min Random Glucose 111 H 70-105 mg/dL Total Calcium 7.5 L 8.5-10.1 mg/dL Phosphorus Level 5.4 H 2.5-4.9 mg/dL Magnesium Level 2.10 1.80-2.40 mg/dL Iron Level 22 #L 65-175 mcg/dL Total Iron Binding Capacity 134 L 250-450 mcg/dL Percent Iron Saturation 16.4 L 30-44 % Total Bilirubin 0.4 0.2-1.0 mg/dL Aspartate Amino Transf (AST/SGOT) 24 10-37 U/L Alanine Aminotransferase (ALT/SGPT) 14 12-78 U/L Alkaline Phosphatase 209 H 50-136 U/L Total Protein 5.9 L 6.0-8.3 g/dL Albumin 1.8 L 3.5-5.0 g/dL Hemoglobin A1c 6.4 H 4.0-6.0 % Estimated Average Glucose (eAG) 137 H 70-126 mg/dL Ferritin 120 30-400 ng/mL Triglycerides Level 86 30-200 mg/dL Cholesterol Level 111 # <200 mg/dL LDL Cholesterol 59 0-99 mg/dL HDL Cholesterol 39 29-71 mg/dL Total Creatine Kinase 68 # 21-232 U/L Test 06/03/25 08:17 Range/Units Troponin I High Sensitivity 53 4-75 ng/L Coagulation Labs: Test 06/03/25 08:17 Range/Units Prothrombin Time 11.2 9.6-11.6 SEC Prothromb Time International Ratio 1.06 0.85-1.15 Activated Partial Thromboplast Time 24.5 L 26.3-35.5 SEC DIAGNOSTICS / RADIOLOGY RESULTS: REASON: ascites, new onset ORDERING PHYSICIAN: CHAITANYA BALBUENA [employer]PERATOR PROCEDURE: ABD PEL WO - CT ABDOMEN/PELVIS W/O CONTRAST EXAM: CT Abdomen and Pelvis Without IV contrast CLINICAL HISTORY: Patient presents with new onset ascites. TECHNIQUE: Axial computed tomography images of the abdomen and pelvis without intravenous contrast. COMPARISON: None provided. FINDINGS: LUNG BASES: Small left pleural effusion with adjacent atelectasis. Elevation of the right hemidiaphragm.Mild cardiomegaly. Atheromatous wall calcifications of the aorta and coronary arteries. Median sternotomy sutures and pacemaker leads in situ. LIVER: Liver measures 12.5 cm in craniocaudal span and shows cirrhotic architecture with lobulated margins, widened interlobar fissure, and relative hypertrophy of the left and caudate lobes. GALLBLADDER AND BILE DUCTS: Cholelithiasis without evidence of cholecystitis. No biliary ductal dilatation. PANCREAS: Unremarkable. SPLEEN: Unremarkable. ADRENAL GLANDS: Unremarkable. KIDNEYS, URETERS, AND BLADDER: Bilateral renal vascular calcifications. Bilateral perinephric fat stranding and haziness. The urinary bladder is suboptimally distended. No hydronephrosis or hydroureter. STOMACH AND BOWEL: Mild constipation. No bowel obstruction. APPENDIX: No evidence of acute appendicitis on CT examination. PERITONEUM: Large amount of ascites with omental and mesenteric fat stranding. Diffuse anasarca. LYMPH NODES: No lymphadenopathy. REPRODUCTIVE: Unremarkable as visualized. VASCULATURE: Atheromatous wall calcifications of the aorta and iliac arteries. BONES: Multilevel moderate spondylosis. Subacute to chronic fractures of the right 6th through 11th and left 6th through 10th ribs. IMPRESSION: Small right inguinal and umbilical hernias containing fat and ascitic fluid. Large amount of ascites with omental and mesenteric fat stranding. Cirrhotic liver with architectural distortion and relative hypertrophy of the left and caudate lobes. Cholelithiasis without cholecystitis. Diffuse anasarca. Small left pleural effusion with adjacent atelectasis. Mild cardiomegaly. Multilevel moderate spondylosis and subacute to chronic bilateral rib fractures. Recommend further evaluation with contrast-enhanced CT or MRI abdomen for detailed assessment of liver disease and ascites etiology. PLAN NEURO: Minimize central acting medications as possible. Maintain fall precautions, adequate lighting during the day PULMONARY: Supplemental 02 as needed. Maintain aspiration precautions at all times CARDIOVASCULAR: Follow hemodynamics. Vital signs per facility protocol GI & NUTRITION: Continue with nutritional support. Continue stool softeners and laxatives as needed. KIDNEYS & ELECTROLYTES: Strict monitoring of intake, output and overall fluid balance. Avoid nephrotoxic medications to the extent possible. Medications to be dosed according to renal function. Monitor electrolytes and replace as needed ENDOCRINE: Maintain blood glucose between 100-180 at all times. Hypoglycemia protocol in place INFECTIOUS DISEASE: Trend temperature, WBC and procalcitonin level Follow cultures, deescalate antibiotics as soon as possible. Panculture if new onset fever ONCOLOGY/HEMATOLOGY/COAGULATION: Monitor for s/s of bleeding Monitor hemoglobin, coagulation studies as needed SKIN: Pressure ulcer prevention per facility protocol Specialty mattress ORTHO/REHAB: Continue PT/OT Prophylaxis: Continue GI and DVT prophylaxis Code Status: Full Resuscitation Disposition: TBD CHAITANYA BALBUENA NP Jun 04, 2025 12:18
--- NOTE | 2025-06-04 12:42 | HMCIMG ---
EXAM: CT Abdomen and Pelvis Without IV contrast CLINICAL HISTORY: Patient presents with new onset ascites. TECHNIQUE: Axial computed tomography images of the abdomen and pelvis without intravenous contrast. COMPARISON: None provided. FINDINGS: LUNG BASES: Small left pleural effusion with adjacent atelectasis. Elevation of the right hemidiaphragm.Mild cardiomegaly. Atheromatous wall calcifications of the aorta and coronary arteries. Median sternotomy sutures and pacemaker leads in situ. LIVER: Liver measures 12.5 cm in craniocaudal span and shows cirrhotic architecture with lobulated margins, widened interlobar fissure, and relative hypertrophy of the left and caudate lobes. GALLBLADDER AND BILE DUCTS: Cholelithiasis without evidence of cholecystitis. No biliary ductal dilatation. PANCREAS: Unremarkable. SPLEEN: Unremarkable. ADRENAL GLANDS: Unremarkable. KIDNEYS, URETERS, AND BLADDER: Bilateral renal vascular calcifications. Bilateral perinephric fat stranding and haziness. The urinary bladder is suboptimally distended. No hydronephrosis or hydroureter. STOMACH AND BOWEL: Mild constipation. No bowel obstruction. APPENDIX: No evidence of acute appendicitis on CT examination. PERITONEUM: Large amount of ascites with omental and mesenteric fat stranding. Diffuse anasarca. LYMPH NODES: No lymphadenopathy. REPRODUCTIVE: Unremarkable as visualized. VASCULATURE: Atheromatous wall calcifications of the aorta and iliac arteries. BONES: Multilevel moderate spondylosis. Subacute to chronic fractures of the right 6th through 11th and left 6th through 10th ribs. IMPRESSION: Small right inguinal and umbilical hernias containing fat and ascitic fluid. Large amount of ascites with omental and mesenteric fat stranding. Cirrhotic liver with architectural distortion and relative hypertrophy of the left and caudate lobes. Cholelithiasis without cholecystitis. Diffuse anasarca. Small left pleural effusion with adjacent atelectasis. Mild cardiomegaly. Multilevel moderate spondylosis and subacute to chronic bilateral rib fractures. Recommend further evaluation with contrast-enhanced CT or MRI abdomen for detailed assessment of liver disease and ascites etiology. /[place]
--- NOTE | 2025-06-04 14:11 | HMCIMG ---
US VEIN MAPPING UNI/LTD REASON: av access COMPARISON: None TECHNIQUE: TECHNIQUE: Ultrasound upper extremity venous mapping study was performed for hemodialysis access. FINDINGS: RIGHT cephalic vein: [place]: Not seen High upper arm: Depth: 3 millimeter Lumen: 1 millimeter Mid upper arm: Depth: 1 millimeter Lumen: 1 millimeter Low upper arm: Depth: 2 millimeter Lumen: 1 millimeter Antecubital fossa: Depth: 6 millimeter Lumen: 2 millimeter High forearm: Depth: 4 millimeter Lumen: 3 millimeter Mid forearm: Depth: 3 millimeter Lumen: 1 millimeter Wrist: Depth: 3 millimeter Lumen: 1 millimeter RIGHT Basilic vein: Upper Arm: Depth: 7 millimeter Lumen: 5 millimeter Lower Arm: Depth: 12 millimeter Lumen: 3 millimeter Antecubital fossa: Depth: 4 millimeter Lumen: 4 millimeter IMPRESSION: 1. Ultrasound upper extremity venous mapping study as described above. IMPRESSION: Findings as described above
--- NOTE | 2025-06-04 18:20 | NUR ---
HD AT BED SIDE STARTED VIA HD TECH
[2025-06-04] MEDS: 0.9%NACL 1000ML 1,000 ML IV SCH (21:07)
[2025-06-04] MEDS: EPOETIN ALFA-EPBX (NON-ESRD) 10,000 UNIT/ML VIAL SQ SCH (21:56)
[2025-06-05] VITALS (22 sets, daily range): BP systolic 120–147; BP diastolic 62–87; PULSE 58–73; RESP 14–20; TEMP 97.4–99; O2SAT 97
[2025-06-05 06:00] LABS: NUCLEATED RED BLOOD CELLS 0.0 % (0.0-0.19); PLATELET COUNT (AUTO) 111.0 K/uL (130-400); RED BLOOD CELL COUNT(AUTO) 3.05 MIL/uL (4.50-6.20); RED CELL DISTRIBUTION WIDTH 15.0 % (11.0-15.5); WHITE BLOOD COUNT (AUTO) 5.4 K/uL (4.8-10.8)
[2025-06-05 06:26] LABS: ASPARTATE AMINOTRANSFERASE 23.0 U/L (10-37); CREATININE 3.1 mg/dL (0.5-1.3); GLOMERULAR FILTR. RATE CALC 21.0 mL/min (>90); GLUCOSE,RANDOM 127.0 mg/dL (70-105); SODIUM SERUM 140.0 mmol/L (136-145); TOTAL PROTEIN, SERUM 6.1 g/dL (6.0-8.3); UREA NITROGEN, BLOOD 65.0 mg/dL (7-18)
--- NOTE | 2025-06-05 12:41 | PN ---
[facility] PROGRESS NOTE Date Patient Seen: Jun 05, 2025 Time of Visit: 12:40 Supervising Physician: Dr. Ugo Brizuela Primary Care Physician: Dr. Pat Richey Outpatient Specialists: Dr. Carrillo (Nephrology) Inpatient Consults: Dr. Carrillo (Nephrology) PROBLEM LIST: BRYCE on CKD stage V S/P permcath placement by IR on 06/03/2025 with initiation of hemodialysis Chronic combined CHF, LVEF 25% per Echo on 01/2025 Anasarca due to above Liver cirrhosis, new diagnosis per CT abdomen Ascites with recent paracentesis on 06/01/25 with 7 liters removed Chronic atrial fibrillation on Eliquis (last dose on 05/30/25) DM type 2 AICD status Hypertension Hyperlipidemia Morbid obesity, BMI 34 INTERVAL HISTORY: Patient assessed at bedside. AAOX3. Currently on room air. Pending to go have third hemodialysis treatment today. Denies any chest pain, abdominal pain, nausea or vomiting. at bedside. Plan: Possible paracentesis on Sunday if still has ascites Pending CTS for fistula vs graft Continue to hold Eliquis/Plavix Monitor for bleeding Fluid restriction 1.5L/day AM labs REVIEW OF SYSTEMS: 12 point ROS reviewed with patient. Pertinent positives mentioned above. Otherwise negative. PHYSICAL EXAM: GENERAL: alert, weak, awake oriented x 3 HEENT: EOMI, Sclera non icteric, moist mucosa NECK: Supple, no JVD, trachea midline LUNGS: Clear breath sounds bilaterally. No wheezes HEART: Regular rate and rhythm. Normal S1 and S2, without murmurs ABD: Abdomen soft, nontender. Bowel sounds present EXT: No clubbing cyanosis or edema NEURO: Alert and oriented to person, follows commands Vital Signs (last 8hr) Date Time Temp Pulse Resp B/P (MAP) Pulse Ox O2 Delivery O2 Flow Rate FiO2 06/05/25 08:00 98.1 58 18 132/66 97 Room Air LABS: Hematology Labs: Test 06/05/25 05:40 06/04/25 03:35 Range/Units White Blood Count 5.4 4.8-10.8 K/uL Red Blood Count 3.05 L 4.50-6.20 MIL/uL Hemoglobin 8.9 L 14.0-18.0 g/dL Hematocrit 27.7 L 42-54 % Mean Corpuscular Volume 90.8 79-99 fL Mean Corpuscular Hemoglobin 29.2 27.0-33.0 pg Mean Corpuscular Hemoglobin Concent 32.1 32.0-36.0 g/dL Red Cell Distribution Width 15.0 11.0-15.5 % Platelet Count 111 L 130-400 K/uL Mean Platelet Volume 11.4 H 7.5-10.5 fL Nucleated Red Blood Cells 0.0 0.0-0.19 % Immature Granulocyte % (Auto) 0.2 0-1 % Neutrophils (%) (Auto) 71.7 40.0-77.0 % Lymphocytes (%) (Auto) 14.5 L 21.0-51.0 % Monocytes (%) (Auto) 9.7 3.0-13.0 % Eosinophils (%) (Auto) 3.0 0.0-8.0 % Basophils (%) (Auto) 0.9 0.0-5.0 % Neutrophils # (Auto) 4.1 1.8-7.7 K/uL Lymphocytes # (Auto) 0.8 L 1.0-4.8 K/uL Monocytes # (Auto) 0.6 0.1-1.0 K/uL Eosinophils # (Auto) 0.17 0.00-0.70 K/uL Basophils # (Auto) 0.05 0.00-0.20 K/uL Absolute Immature Granulocyte (auto 0.01 0-1 K/uL Chemistry Labs: Test 06/05/25 11:13 06/05/25 05:40 06/04/25 15:58 06/04/25 03:35 Range/Units Whole Blood Glucose 154 H 70-110 MG/DL Sodium Level 140 136-145 mmol/L Potassium Level 3.8 3.5-5.1 mmol/L Chloride Level 106 101-111 mmol/L Carbon Dioxide Level 25 21-32 mmol/L Blood Urea Nitrogen 65 H 7-18 mg/dL Creatinine 3.1 H 0.5-1.3 mg/dL Glomerular Filtration Rate Calc 21 >90 mL/min Random Glucose 127 H 70-105 mg/dL Total Calcium 7.6 L 8.5-10.1 mg/dL Magnesium Level 2.10 1.80-2.40 mg/dL Total Bilirubin 0.4 0.2-1.0 mg/dL Aspartate Amino Transf (AST/SGOT) 23 10-37 U/L Alanine Aminotransferase (ALT/SGPT) 12 12-78 U/L Alkaline Phosphatase 202 H 50-136 U/L Total Protein 6.1 6.0-8.3 g/dL Albumin 1.8 L 3.5-5.0 g/dL Bedside Glucose Comment Notified Nurse Phosphorus Level 5.4 H 2.5-4.9 mg/dL Iron Level 22 #L 65-175 mcg/dL Total Iron Binding Capacity 134 L 250-450 mcg/dL Percent Iron Saturation 16.4 L 30-44 % Test 06/03/25 17:55 Range/Units Hemoglobin A1c 6.4 H 4.0-6.0 % Estimated Average Glucose (eAG) 137 H 70-126 mg/dL Ferritin 120 30-400 ng/mL Triglycerides Level 86 30-200 mg/dL Cholesterol Level 111 # <200 mg/dL LDL Cholesterol 59 0-99 mg/dL HDL Cholesterol 39 29-71 mg/dL DIAGNOSTICS / RADIOLOGY RESULTS: [ ] PLAN NEURO: Minimize central acting medications as possible. Maintain fall precautions, adequate lighting during the day PULMONARY: Supplemental 02 as needed. Maintain aspiration precautions at all times CARDIOVASCULAR: Follow hemodynamics. Vital signs per facility protocol GI & NUTRITION: Continue with nutritional support. Continue stool softeners and laxatives as needed. KIDNEYS & ELECTROLYTES: Strict monitoring of intake, output and overall fluid balance. Avoid nephrotoxic medications to the extent possible. Medications to be dosed according to renal function. Monitor electrolytes and replace as needed ENDOCRINE: Maintain blood glucose between 100-180 at all times. Hypoglycemia protocol in place INFECTIOUS DISEASE: Trend temperature, WBC and procalcitonin level Follow cultures, deescalate antibiotics as soon as possible. Panculture if new onset fever ONCOLOGY/HEMATOLOGY/COAGULATION: Monitor for s/s of bleeding Monitor hemoglobin, coagulation studies as needed SKIN: Pressure ulcer prevention per facility protocol Specialty mattress ORTHO/REHAB: Continue PT/OT Prophylaxis: Continue GI and DVT prophylaxis Code Status: Full Resuscitation Disposition: CHAITANYA CASTELLANOS NP Jun 05, 2025 12:41
--- NOTE | 2025-06-05 12:44 | PN ---
FOLLOWUP PROGRESS NOTE SUBJECTIVE: The patient is seen and evaluated, on hemodialysis, prescription noted. PHYSICAL EXAMINATION: VITAL SIGNS: Blood pressure 132/66. CARDIOVASCULAR: Regular. LUNGS: Coarse. IMPRESSION: End-stage renal disease. PLAN: The patient will continue with maximum ultrafiltration as blood pressure allows. The patient is being set up for outpatient dialysis. TID: [id number] RECEIPT: [id number]
[2025-06-06 04:00] VITALS: BP 130/68; PULSE 80; RESP 20; TEMP 98.7
[2025-06-06 08:00] VITALS: BP 142/86; PULSE 75; RESP 16; TEMP 97.9; O2SAT 97
--- NOTE | 2025-06-06 08:36 | CONS ---
REASON FOR CONSULTATION: This is a gentleman who was referred for evaluation of permanent AV access for hemodialysis. HISTORY OF PRESENT ILLNESS: This is a 70-year-old gentleman new to hemodialysis, scheduled for creation of an AV fistula. I had the opportunity to review the medical record as well as examin the patient. I have ordered venous mapping and we will assess the feasibility to performing a brachiocephalic AV fistula in the non-dominant arm. The patient understands the indications for surgery as well as the potential complications of the operation including but not limited to possible bleeding, infection, and the association of multiple procedures relating to the AV fistula creation including Steal syndrome and the possibility of losing digits. He understands and wishes to proceed. PLAN: Plan for creation of AV fistula next week. TID: [id number] RECEIPT: [id number]
[2025-06-06 11:41] VITALS: BP 134/66; PULSE 70; RESP 16; TEMP 98.1
--- NOTE | 2025-06-06 11:56 | PN ---
SUBJECTIVE: A 70-year-old male with a history of diabetes mellitus and hypertension. He has a history of end-stage renal disease and has been initially on dialysis. The patient's weight has declined by 6 kg since admission. He continues to do well from a general medical standpoint. The patient's uremic symptoms are much improved. He is being set up for outpatient dialysis. REVIEW OF SYSTEMS: CONSTITUTIONAL: He is feeling improved. HEENT: No change in vision. No change in hearing. CARDIOVASCULAR: There is no current chest pain or palpitations. PULMONARY: There is no shortness of breath. GASTROINTESTINAL: He is tolerating a diet. MUSCULOSKELETAL: Complaints of weakness. PHYSICAL EXAMINATION: VITAL SIGNS: Blood pressure 142/86, pulse 70. He is afebrile. GENERAL: Chronically ill male, elderly, lying in bed on the medical floor. HEENT: Head is atraumatic. Pupils are equal, roving to light. Oropharynx is without exudate. Nares clear. NECK: There is no JVP. There is no thyromegaly. No masses. CARDIOVASCULAR: Regular. There is no S3 or S4 gallop. LUNGS: Coarse with equal thoracic movement. ABDOMEN: Soft, nondistended, and nontender. EXTREMITIES: Reveals no clubbing or cyanosis. NEUROLOGICAL: He is awake. He is alert. LABORATORY DATA: Sodium 140, potassium 3.8, BUN 65, creatinine 3, hemoglobin 8.9, hematocrit 27. IMPRESSION: * End-stage renal disease, on dialysis. * Diabetes mellitus. * Hypertension. * Anemia. PLAN: The patient continues to do well from a general medical standpoint. The patient's uremic symptoms are much improved. The patient is being set up for outpatient dialysis. The patient is also being seen by Surgical Service for a primary AV access. We will continue to follow closely and make further recommendations accordingly. TID: [id number] RECEIPT: [id number]
--- NOTE | 2025-06-06 12:00 | PN ---
[facility] PROGRESS NOTE Date Patient Seen: Jun 06, 2025 Time of Visit: 12:00 Supervising Physician: Dr. Ugo Brizuela Primary Care Physician: Dr. Pat Richey Outpatient Specialists: Dr. Carrillo (Nephrology) Inpatient Consults: Dr. Carrillo (Nephrology) PROBLEM LIST: BRYCE on CKD stage V S/P permcath placement by IR on 06/03/2025 with initiation of hemodialysis Chronic combined CHF, LVEF 25% per Echo on 01/2025 Anasarca due to above Liver cirrhosis, new diagnosis per CT abdomen Ascites with recent paracentesis on 06/01/25 with 7 liters removed Chronic atrial fibrillation on Eliquis (last dose on 05/30/25) DM type 2 AICD status Hypertension Hyperlipidemia Morbid obesity, BMI 34 INTERVAL HISTORY: Patient assessed at bedside. AAOX3. Currently on room air. Had third hemo dialysis session yesterday. Pending CTS to evaluate for dialysis access. Denies any chest pain, abdominal pain, nausea or vomiting. at bedside. Plan: Possible paracentesis on Sunday if still has ascites Pending CTS for fistula vs graft Continue to hold Eliquis/Plavix Monitor for bleeding Fluid restriction 1.5L/day REVIEW OF SYSTEMS: 12 point ROS reviewed with patient. Pertinent positives mentioned above. Otherwise negative. PHYSICAL EXAM: GENERAL: alert, weak, awake oriented x 3 HEENT: EOMI, Sclera non icteric, moist mucosa NECK: Supple, no JVD, trachea midline LUNGS: Clear breath sounds bilaterally. No wheezes HEART: Regular rate and rhythm. Normal S1 and S2, without murmurs ABD: Abdomen soft, nontender. Bowel sounds present EXT: No clubbing cyanosis or edema NEURO: Alert and oriented to person, follows commands Vital Signs (last 8hr) Date Time Temp Pulse Resp B/P (MAP) Pulse Ox O2 Delivery O2 Flow Rate FiO2 06/06/25 11:41 98.1 70 16 134/66 98 Room Air 21 06/06/25 08:00 97 Room Air* 0 21 06/06/25 08:00 97.9 75 16 142/86 97 Room Air 21 LABS: Hematology Labs: Test 06/05/25 05:40 Range/Units White Blood Count 5.4 4.8-10.8 K/uL Red Blood Count 3.05 L 4.50-6.20 MIL/uL Hemoglobin 8.9 L 14.0-18.0 g/dL Hematocrit 27.7 L 42-54 % Mean Corpuscular Volume 90.8 79-99 fL Mean Corpuscular Hemoglobin 29.2 27.0-33.0 pg Mean Corpuscular Hemoglobin Concent 32.1 32.0-36.0 g/dL Red Cell Distribution Width 15.0 11.0-15.5 % Platelet Count 111 L 130-400 K/uL Mean Platelet Volume 11.4 H 7.5-10.5 fL Nucleated Red Blood Cells 0.0 0.0-0.19 % Chemistry Labs: Test 06/06/25 10:50 06/05/25 05:40 06/04/25 15:58 Range/Units Whole Blood Glucose 184 H 70-110 MG/DL Sodium Level 140 136-145 mmol/L Potassium Level 3.8 3.5-5.1 mmol/L Chloride Level 106 101-111 mmol/L Carbon Dioxide Level 25 21-32 mmol/L Blood Urea Nitrogen 65 H 7-18 mg/dL Creatinine 3.1 H 0.5-1.3 mg/dL Glomerular Filtration Rate Calc 21 >90 mL/min Random Glucose 127 H 70-105 mg/dL Total Calcium 7.6 L 8.5-10.1 mg/dL Magnesium Level 2.10 1.80-2.40 mg/dL Total Bilirubin 0.4 0.2-1.0 mg/dL Aspartate Amino Transf (AST/SGOT) 23 10-37 U/L Alanine Aminotransferase (ALT/SGPT) 12 12-78 U/L Alkaline Phosphatase 202 H 50-136 U/L Total Protein 6.1 6.0-8.3 g/dL Albumin 1.8 L 3.5-5.0 g/dL Bedside Glucose Comment Notified Nurse DIAGNOSTICS / RADIOLOGY RESULTS: [ ] PLAN NEURO: Minimize central acting medications as possible. Maintain fall precautions, adequate lighting during the day PULMONARY: Supplemental 02 as needed. Maintain aspiration precautions at all times CARDIOVASCULAR: Follow hemodynamics. Vital signs per facility protocol GI & NUTRITION: Continue with nutritional support. Continue stool softeners and laxatives as needed. KIDNEYS & ELECTROLYTES: Strict monitoring of intake, output and overall fluid balance. Avoid nephrotoxic medications to the extent possible. Medications to be dosed according to renal function. Monitor electrolytes and replace as needed ENDOCRINE: Maintain blood glucose between 100-180 at all times. Hypoglycemia protocol in place INFECTIOUS DISEASE: Trend temperature, WBC and procalcitonin level Follow cultures, deescalate antibiotics as soon as possible. Panculture if new onset fever ONCOLOGY/HEMATOLOGY/COAGULATION: Monitor for s/s of bleeding Monitor hemoglobin, coagulation studies as needed SKIN: Pressure ulcer prevention per facility protocol Specialty mattress ORTHO/REHAB: Continue PT/OT Prophylaxis: Continue GI and DVT prophylaxis Code Status: Full Resuscitation Disposition: CHAITANYA CASTELLANOS NP Jun 06, 2025 12:00
[2025-06-06 16:00] VITALS: BP 133/73; PULSE 73; RESP 18; TEMP 98
[2025-06-06 20:00] VITALS: BP 128/67; PULSE 65; RESP 20; TEMP 98.5; O2SAT 98
[2025-06-06 23:58] VITALS: BP 143/60; PULSE 68; RESP 20; TEMP 98.5
[2025-06-07 04:00] VITALS: BP 135/62; PULSE 65; RESP 18; TEMP 98.2
[2025-06-07 08:00] VITALS: BP 131/72; PULSE 61; RESP 16; TEMP 97.6; O2SAT 98
--- NOTE | 2025-06-07 11:16 | CONS ---
[facility] Cardiology Consultation Note Cardiology consultation June 07, 2025 Chief complaint: This is a 70-year-old male whom we are asked to evaluate preoperatively prior to AV fistula surgery. History of present illness: The patient has a advanced stage five renal disease and has started on dialysis with a PermCath. He is scheduled tomorrow for AV fistula surgery. Past medical history: The patient has a history of a remote aortocoronary bypass graft surgery in 2008. He has a known ischemic cardiomyopathy with ejection fraction of 20-25%. He is status post a [employer] MRI compatible PCD implant 03/20/2025. He has a history of paroxysmal atrial fibrillation. He has known peripheral arterial disease not felt to be amenable to revascularization. He has suspected underlying May-Thurner syndrome but was not a candidate for a venogram due to advanced renal disease. He has a history of recurrent ascites status post paracentesis with removal of 7 L on this admission. Review of systems: Currently denies any chest pain or shortness of breath. He has had no shocks from his defibrillator since implant. Social history: He is a former smoker quit in 2021. Allergies: No known allergies Medications: Here in the hospital he is receiving Epogen insulin scale metoprolol succinate pantoprazole. Home dose of apixaban 5 mg b.i.d. is currently on hold as his clopidogrel. Atorvastatin and isosorbide mononitrate are also on hold. Physical exam: Blood pressure 134/66 heart rate in the 70s and regular. The patient is afebrile. He is lying comfortably flat. There was no elevation of the jugular venous pressure. No bruits. Lungs are clear. S1 normal S2 physiologically split. 2/6 holosystolic apical murmur is present. Abdomen is soft. Extremities show plus one edema. He is alert and oriented. A PermCath was noted in the right subclavian area. Laboratory studies: Hemoglobin 8.9 platelet count [id number]. Creatinine on June 05 was 3.1 with an estimated GFR of 21. 197-111 while here in the hospital. Telemetry has shown sinus rhythm with periods of atrial pacing. He has an underlying IVCD. Chest x-ray: Defibrillator leads appear to be in good position. Post sternotomy changes are noted. Cardiomegaly is present. No effusions are present. He has mild passive congestive changes. Assessment: 1. End-stage renal disease initiated on hemodialysis with a PermCath scheduled for AV fistula surgery tomorrow 2. Ischemic cardiomyopathy with ejection fraction of 20-25% currently compensated 3. CAD status post aortocoronary bypass graft surgery 2008 4. [facility] PCD implant March 2025 5. Former smoker quit 2021 6. Dyslipidemia 7. Chronic anticoagulation with clopidogrel and apixaban currently both on hold Plan: At the present time I see no contraindications the procedure as planned. He is an intermediate risk patient for a fairly low risk procedure. I would advise repeating a CBC to recheck his platelet count prior to the procedure as it did drop from [phone] while here in the hospital. When stable postprocedure the patient can resume his atorvastatin apixaban and clopidogrel medications. If blood pressure is stable going forward on dialysis he may be able to start on an ESTELA inhibitor or ARB. TERESA DUNHAM MD Jun 07, 2025 11:16
[2025-06-07 12:00] VITALS: BP 129/64; PULSE 60; RESP 16; TEMP 97.6
[2025-06-07 12:06] LABS: NUCLEATED RED BLOOD CELLS 0.0 % (0.0-0.19); PLATELET COUNT (AUTO) 111.0 K/uL (130-400); RED BLOOD CELL COUNT(AUTO) 3.12 MIL/uL (4.50-6.20); RED CELL DISTRIBUTION WIDTH 15.2 % (11.0-15.5); WHITE BLOOD COUNT (AUTO) 7.5 K/uL (4.8-10.8)
--- NOTE | 2025-06-07 12:09 | PN ---
[facility] PROGRESS NOTE Date Patient Seen: Jun 07, 2025 Time of Visit: 12:09 Supervising Physician: Dr. Holger Carolina Primary Care Physician: Dr. Pat Richey Outpatient Specialists: Dr. Carrillo (Nephrology) Inpatient Consults: Dr. Carrillo (Nephrology) PROBLEM LIST: BRYCE on CKD stage V S/P permcath placement by IR on 06/03/2025 with initiation of hemodialysis Chronic combined CHF, LVEF 25% per Echo on 01/2025, compensated Anasarca due to above Liver cirrhosis, new diagnosis per CT abdomen Ascites with recent paracentesis on 06/01/25 with 7 liters removed Chronic atrial fibrillation on Eliquis (last dose on 05/30/25) DM type 2 AICD status due to cardiomyopathy Hypertension Hyperlipidemia Morbid obesity, BMI 34 INTERVAL HISTORY: Patient assessed at bedside. AAOX3. Currently on room air. Pending to go for hemodialysis fistula tomorrow. Abdomen firm and patient states he gained 4 pounds from yesterday. Agrees to proceed with paracentesis on Sunday or Sunday, depending on schedule for fistula. Denies any chest pain, abdominal pain, nausea or vomiting. Family at bedside Plan: Pending to go to OR for fistula in AM Cardiology consulted for cardiac clearance Possible paracentesis on Sunday or Sunday if still has ascites Continue to hold Eliquis/Plavix Monitor for bleeding Fluid restriction 1.5L/day REVIEW OF SYSTEMS: 12 point ROS reviewed with patient. Pertinent positives mentioned above. Otherwise negative. PHYSICAL EXAM: GENERAL: alert, weak, awake oriented x 3 HEENT: EOMI, Sclera non icteric, moist mucosa NECK: Supple, no JVD, trachea midline LUNGS: Clear breath sounds bilaterally. No wheezes HEART: Regular rate and rhythm. Normal S1 and S2, without murmurs ABD: Abdomen soft, nontender. Bowel sounds present EXT: No clubbing cyanosis or edema NEURO: Alert and oriented to person, follows commands Vital Signs (last 8hr) Date Time Temp Pulse Resp B/P (MAP) Pulse Ox O2 Delivery O2 Flow Rate FiO2 06/07/25 08:00 97.5 61 16 131/72 98 Room Air 21 06/07/25 08:00 98 Room Air* 0 21 LABS: Hematology Labs: Test 06/07/25 11:59 Range/Units White Blood Count 7.5 4.8-10.8 K/uL Red Blood Count 3.12 L 4.50-6.20 MIL/uL Hemoglobin 9.1 L 14.0-18.0 g/dL Hematocrit 28.7 L 42-54 % Mean Corpuscular Volume 92.0 79-99 fL Mean Corpuscular Hemoglobin 29.2 27.0-33.0 pg Mean Corpuscular Hemoglobin Concent 31.7 L 32.0-36.0 g/dL Red Cell Distribution Width 15.2 11.0-15.5 % Platelet Count 111 L 130-400 K/uL Mean Platelet Volume 11.9 H 7.5-10.5 fL Nucleated Red Blood Cells 0.0 0.0-0.19 % Chemistry Labs: Test 06/07/25 10:34 06/06/25 15:50 Range/Units Whole Blood Glucose 188 #H 70-110 MG/DL Bedside Glucose Comment Notified Nurse DIAGNOSTICS / RADIOLOGY RESULTS: [ ] PLAN NEURO: Minimize central acting medications as possible. Maintain fall precautions, adequate lighting during the day PULMONARY: Supplemental 02 as needed. Maintain aspiration precautions at all times CARDIOVASCULAR: Follow hemodynamics. Vital signs per facility protocol GI & NUTRITION: Continue with nutritional support. Continue stool softeners and laxatives as needed. KIDNEYS & ELECTROLYTES: Strict monitoring of intake, output and overall fluid balance. Avoid nephrotoxic medications to the extent possible. Medications to be dosed according to renal function. Monitor electrolytes and replace as needed ENDOCRINE: Maintain blood glucose between 100-180 at all times. Hypoglycemia protocol in place INFECTIOUS DISEASE: Trend temperature, WBC and procalcitonin level Follow cultures, deescalate antibiotics as soon as possible. Panculture if new onset fever ONCOLOGY/HEMATOLOGY/COAGULATION: Monitor for s/s of bleeding Monitor hemoglobin, coagulation studies as needed SKIN: Pressure ulcer prevention per facility protocol Specialty mattress ORTHO/REHAB: Continue PT/OT Prophylaxis: Continue GI and DVT prophylaxis Code Status: Full Resuscitation Disposition: CHAITANYA CASTELLANOS NP Jun 07, 2025 12:09
[2025-06-07 16:00] VITALS: BP 131/62; PULSE 60; RESP 16; TEMP 98.8
--- NOTE | 2025-06-07 18:24 | PN ---
FOLLOWUP PROGRESS NOTE SUBJECTIVE: The patient is a 70-year-old male with a history of diabetes mellitus and hypertension. The patient with a history of end-stage renal disease and has been initiated on dialysis. The patient has done well from a renal standpoint. The patient's uremic symptoms are much improved. The patient's weight has declined while in the hospital and he has been seen as a followup visit for all of the above. REVIEW OF SYSTEMS: CONSTITUTIONAL: He is feeling improved. HEENT: No change in vision. No change in hearing. CARDIOVASCULAR: There is no current chest pain or palpitations. PULMONARY: Shortness of breath has improved. GASTROINTESTINAL: He is tolerating a diet. MUSCULOSKELETAL: Complains of weakness. PHYSICAL EXAMINATION: VITAL SIGNS: Blood pressure 131/72. Pulse is 60. Afebrile. GENERAL: Chronically ill male, elderly, lying in bed on the medical floor. HEENT: Head is atraumatic. Pupils are equal, roving to light. Oropharynx is without exudate. Nares are clear. NECK: There is no JVP. There is no thyromegaly. No mass. CARDIOVASCULAR: Regular. There is no S3 or S4 gallop. LUNGS: Coarse with equal thoracic movement. ABDOMEN: Soft, nondistended, nontender. EXTREMITIES: The edema is improved. IMPRESSION: * End-stage renal disease, now on dialysis. * Diabetes mellitus. * Hypertension. * Coronary artery disease. PLAN: The patient is being set up for outpatient dialysis. The patient is being seen by Cardiology in regards to clearance for a primary AV access. He remains on erythropoietin injection for the anemia. All labs can be repeated in the morning. The patient and family were at the bedside, multiple questions, were all answered. TID: [id number] RECEIPT: [id number]
--- NOTE | 2025-06-07 19:20 | PN ---
SUBJECTIVE: This patient underwent mapping of the right upper extremity with adequate cephalic vein on the forearm. He is in end-stage renal failure, new to hemodialysis, referred for creation of AV fistula. I have reviewed the imaging and examined the patient. I have discussed with him the different modes of therapy for dialysis including peritoneal or hemo. He has opted to proceed with hemodialysis and understands the indications of the procedure as well as the potential complications including, but not limited to postoperative bleeding, infection, stroke, and/or as well as associated morbidity and mortality of the procedure as it relates to his own comorbidities and wishes to proceed with creation of brachiocephalic AV fistula. PLAN: For surgery tomorrow. TID: [id number] RECEIPT: [id number]
[2025-06-07 20:00] VITALS: BP 150/79; PULSE 68; RESP 20; TEMP 98.6; O2SAT 98
[2025-06-07 23:52] VITALS: BP 142/74; PULSE 70; RESP 20; TEMP 98.4
[2025-06-08] VITALS (27 sets, daily range): BP systolic 124–155; BP diastolic 50–92; PULSE 60–90; RESP 15–20; TEMP 97.4–98.3; O2SAT 99
[2025-06-08 04:26] LABS: IMMATURE GRANULOCYTE ABSOLUTE 0.03 K/uL (0-1); NUCLEATED RED BLOOD CELLS 0.0 % (0.0-0.19); PLATELET COUNT (AUTO) 109 K/uL (130-400); RED BLOOD CELL COUNT(AUTO) 2.92 MIL/uL (4.50-6.20); RED CELL DISTRIBUTION WIDTH 15.3 % (11.0-15.5); WHITE BLOOD COUNT (AUTO) 6.8 K/uL (4.8-10.8)
[2025-06-08 04:36] LABS: CREATININE 4.2 mg/dL (0.5-1.3); GLOMERULAR FILTR. RATE CALC 14.0 mL/min (>90); GLUCOSE,RANDOM 123.0 mg/dL (70-105); PHOSPHORUS 5.1 mg/dL (2.5-4.9); SODIUM SERUM 142.0 mmol/L (136-145); UREA NITROGEN, BLOOD 72.0 mg/dL (7-18)
[2025-06-08 04:41] LABS: INR 1.06 (0.85-1.15)
--- NOTE | 2025-06-08 09:10 | PN ---
FOLLOWUP PROGRESS NOTE SUBJECTIVE: A 70-year-old male with a history of diabetes mellitus and hypertension. He has a history of end-stage renal disease. He has been initiated on dialysis. The patient has done quite well from a renal standpoint. Uremic symptoms are much improved. The patient is scheduled for a primary AV access later today and the patient is being seen as a followup visit for all of the above. REVIEW OF SYSTEMS: CONSTITUTIONAL: He is feeling improved. HEENT: No change in vision. No change in hearing. CARDIOVASCULAR: There is no current chest pain or palpitations. PULMONARY: There is no shortness of breath. GASTROINTESTINAL: He is tolerating a diet. MUSCULOSKELETAL: Complains of weakness. PHYSICAL EXAMINATION: VITAL SIGNS: Blood pressure 135/92, pulse 60, he is afebrile. GENERAL: He is a chronically ill male, elderly, lying in bed on the medical floor. HEENT: Head is atraumatic. Pupils are equal, roving and reactive to light. Oropharynx is without exudate. Nares clear. NECK: There is no JVP. There is no thyromegaly, no mass. CARDIOVASCULAR: Regular. There is no S3, S4 or gallop. LUNGS: Coarse with equal thoracic movement. ABDOMEN: Soft, nondistended, and nontender. EXTREMITIES: Reveal no clubbing, no cyanosis. NEUROLOGICAL: He is awake, he is alert. LABORATORY DATA: Sodium 142, potassium is 4, BUN 72, creatinine is 4, hemoglobin 8.3, hematocrit 27. IMPRESSION: * End-stage renal disease, now on dialysis. * Diabetes mellitus. * Hypertension. * Anemia. PLAN: The patient is being set up for outpatient dialysis. The patient is for primary AV access later today. He will continue dialysis on a Sunday, and Sunday schedule and we will continue to follow the patient closely. He is receiving erythropoietin injection for the anemia. Once the patient is discharged, the patient will follow up in the [facility]. TID: [id number] RECEIPT: [id number]
[2025-06-08] MEDS ORDERED: HEParin-NS 1,000 UNIT/500 ML 500 ML IV ONE (11:49)
[2025-06-08] MEDS ORDERED: ALBUMIN (HUMAN) 25% 50 ML IV ONE (12:03)
[2025-06-08] MEDS ORDERED: MIDAZOLAM HCL 1 MG/ML 2ML VIAL ONE (12:04)
[2025-06-08] MEDS ORDERED: NOREPINEPHRINE BITARTRATE 1 MG/1 ML ML IV ONE (12:04)
[2025-06-08] MEDS: FAMOTIDINE 20MG VIAL IV ONE (12:06)
[2025-06-08] MEDS: SUGAMMADEX SODIUM 200 MG/2 ML VIAL IV ONE (12:06)
--- NOTE | 2025-06-08 12:10 | PN ---
[facility] PROGRESS NOTE Date Patient Seen: Jun 08, 2025 Time of Visit: 12:10 Supervising Physician: Dr. Issac Reyna Primary Care Physician: Dr. Pat Richey Outpatient Specialists: Dr. Carrillo (Nephrology) Inpatient Consults: Dr. Carrillo (Nephrology) PROBLEM LIST: BRYCE on CKD stage V S/P permcath placement by IR on 06/03/2025 with initiation of hemodialysis S/P right arm fistula creation on 06/08/25 Chronic combined CHF, LVEF 25% per Echo on 01/2025, compensated Anasarca due to above Liver cirrhosis, new diagnosis per CT abdomen Ascites with recent paracentesis on 06/01/25 with 7 liters removed Chronic atrial fibrillation on Eliquis (last dose on 05/30/25) DM type 2 AICD status due to cardiomyopathy Hypertension Hyperlipidemia Morbid obesity, BMI 34 INTERVAL HISTORY: Patient assessed at bedside. AAOX3. Currently on room air. S/P right arm fistula creation today. Complains of minimal pain. Abdomen distended and patient states he feels more fluid in abdomen. Agrees to proceed with paracentesis tomorrow by IR. Denies any chest pain, abdominal pain, nausea or vomiting. Family at bedside Plan: Pending to go for paracentesis in AM by IR, order labs for fluid analysis Give albumin x 2 doses post paracentesis Continue to hold Eliquis/Plavix Monitor for bleeding Fluid restriction 1.5L/day Discharge tomorrow post paracentesis and if outpatient HD chair setup REVIEW OF SYSTEMS: 12 point ROS reviewed with patient. Pertinent positives mentioned above. Otherwise negative. PHYSICAL EXAM: GENERAL: alert, weak, awake oriented x 3 HEENT: EOMI, Sclera non icteric, moist mucosa NECK: Supple, no JVD, trachea midline LUNGS: Clear breath sounds bilaterally. No wheezes HEART: Regular rate and rhythm. Normal S1 and S2, without murmurs ABD: Abdomen soft, nontender. Bowel sounds present EXT: No clubbing cyanosis or edema NEURO: Alert and oriented to person, follows commands Vital Signs (last 8hr) Date Time Temp Pulse Resp B/P (MAP) Pulse Ox O2 Delivery O2 Flow Rate FiO2 06/08/25 08:00 97.5 60 18 135/92 98 Room Air 06/08/25 08:00 99 Room Air* 0 21 LABS: Hematology Labs: Test 06/08/25 04:00 Range/Units White Blood Count 6.8 4.8-10.8 K/uL Red Blood Count 2.92 L 4.50-6.20 MIL/uL Hemoglobin 8.3 L 14.0-18.0 g/dL Hematocrit 27.4 L 42-54 % Mean Corpuscular Volume 93.8 79-99 fL Mean Corpuscular Hemoglobin 28.4 27.0-33.0 pg Mean Corpuscular Hemoglobin Concent 30.3 L 32.0-36.0 g/dL Red Cell Distribution Width 15.3 11.0-15.5 % Platelet Count 109 L 130-400 K/uL Mean Platelet Volume 12.1 H 7.5-10.5 fL Immature Granulocyte % (Auto) 0.4 0-1 % Neutrophils (%) (Auto) 70.2 40.0-77.0 % Lymphocytes (%) (Auto) 15.5 L 21.0-51.0 % Monocytes (%) (Auto) 10.2 3.0-13.0 % Eosinophils (%) (Auto) 3.1 0.0-8.0 % Basophils (%) (Auto) 0.6 0.0-5.0 % Neutrophils # (Auto) 4.8 1.8-7.7 K/uL Lymphocytes # (Auto) 1.1 1.0-4.8 K/uL Monocytes # (Auto) 0.7 0.1-1.0 K/uL Eosinophils # (Auto) 0.21 0.00-0.70 K/uL Basophils # (Auto) 0.04 0.00-0.20 K/uL Absolute Immature Granulocyte (auto 0.03 0-1 K/uL Nucleated Red Blood Cells 0.0 0.0-0.19 % Red Blood Cell Morphology See comments Chemistry Labs: Test 06/08/25 11:04 06/08/25 04:00 06/06/25 15:50 Range/Units Whole Blood Glucose 103 70-110 MG/DL Sodium Level 142 136-145 mmol/L Potassium Level 4.0 3.5-5.1 mmol/L Chloride Level 106 101-111 mmol/L Carbon Dioxide Level 30 21-32 mmol/L Blood Urea Nitrogen 72 H 7-18 mg/dL Creatinine 4.2 H 0.5-1.3 mg/dL Glomerular Filtration Rate Calc 14 >90 mL/min Random Glucose 123 H 70-105 mg/dL Total Calcium 7.8 L 8.5-10.1 mg/dL Phosphorus Level 5.1 H 2.5-4.9 mg/dL Bedside Glucose Comment Notified Nurse Coagulation Labs: Test 06/08/25 04:00 Range/Units Prothrombin Time 11.2 9.6-11.6 SEC Prothromb Time International Ratio 1.06 0.85-1.15 Activated Partial Thromboplast Time 29.2 26.3-35.5 SEC DIAGNOSTICS / RADIOLOGY RESULTS: [ ] PLAN NEURO: Minimize central acting medications as possible. Maintain fall precautions, adequate lighting during the day PULMONARY: Supplemental 02 as needed. Maintain aspiration precautions at all times CARDIOVASCULAR: Follow hemodynamics. Vital signs per facility protocol GI & NUTRITION: Continue with nutritional support. Continue stool softeners and laxatives as needed. KIDNEYS & ELECTROLYTES: Strict monitoring of intake, output and overall fluid balance. Avoid nephrotoxic medications to the extent possible. Medications to be dosed according to renal function. Monitor electrolytes and replace as needed ENDOCRINE: Maintain blood glucose between 100-180 at all times. Hypoglycemia protocol in place INFECTIOUS DISEASE: Trend temperature, WBC and procalcitonin level Follow cultures, deescalate antibiotics as soon as possible. Panculture if new onset fever ONCOLOGY/HEMATOLOGY/COAGULATION: Monitor for s/s of bleeding Monitor hemoglobin, coagulation studies as needed SKIN: Pressure ulcer prevention per facility protocol Specialty mattress ORTHO/REHAB: Continue PT/OT Prophylaxis: Continue GI and DVT prophylaxis Code Status: Full Resuscitation Disposition: Home once medically cleared CHAITANYA BALBUENA NP Jun 08, 2025 12:10
[2025-06-08] MEDS: HEParin-NS 1,000 UNIT/500 ML 500 ML IV ONE (12:30)
[2025-06-08] MEDS: BENZOCAINE/MENTH/CETYLPYRD CL 1 EACH LOZENGE MM PRN (18:48)
--- NOTE | 2025-06-08 20:17 | OP ---
DATE OF PROCEDURE: 06/08/2025 PREOPERATIVE DIAGNOSIS: Endstage renal failure. Need for hemolysis access. POSTOPERATIVE DIAGNOSIS: Endstage renal failure. Need for hemolysis access. PROCEDURE PERFORMED: Brachiocephalic-basilic AV fistula. SURGEON: Felix Can MD WASTE BALER: Abbe. ANESTHESIOLOGIST: RABIA. DISPOSITION: Stable. COMPLICATIONS: None. INDICATIONS FOR PROCEDURE: This is a patient whom I had the opportunity to review the imaging studies, examined the patient, and reviewed the medical record. On the mapping, it appeared his cephalic vein was good conduit, about 3 mm. At the time of surgery, the origin of the cephalic was thrombosed at the elbow, so I used the confluence of the cephalic basilic to anastomosis of the brachial artery after I dilated the stricture on the cephalic vein. The connection to the basilic will aid with outflow initially and ____ the cephalic vein is developing, we can block the basilic. At the end of the procedure, we had a good thrill. DESCRIPTION OF PROCEDURE IN DETAIL: With the patient in the supine position after adequate induction of general endotracheal anesthesia, we obtained ____ antibiotics. The right arm was prepped and draped in the usual sterile fashion. Anesthesia was performed. The elbow crease and the cephalic and basilic veins were dissected. The cephalic was strictured and thrombosed at its origin and the arm was black and blue from recent punctures. The patient heparinized with 2500 units and the cephalic basilic junction was detached from the elbow and anastomosed to the top of the brachial artery with a running suture of 6-0 Prolene. Good thrill at the end of the procedure. #2 Vicryl and 3-0 Monocryl for closure. The patient was transferred to the recovery room in stable condition. An early fistulogram should be done to assess the development of this fistula. TID: [id number] RECEIPT: [id number]
[2025-06-09 03:11] VITALS: BP 138/65; PULSE 73; RESP 16; TEMP 98
[2025-06-09 05:11] LABS: NUCLEATED RED BLOOD CELLS 0.0 % (0.0-0.19); PLATELET COUNT (AUTO) 154.0 K/uL (130-400); RED BLOOD CELL COUNT(AUTO) 3.06 MIL/uL (4.50-6.20); RED CELL DISTRIBUTION WIDTH 15.4 % (11.0-15.5); WHITE BLOOD COUNT (AUTO) 8.6 K/uL (4.8-10.8)
[2025-06-09 05:18] LABS: INR 1.03 (0.85-1.15)
[2025-06-09 05:25] LABS: CREATININE 4.5 mg/dL (0.5-1.3); GLOMERULAR FILTR. RATE CALC 13.0 mL/min (>90); GLUCOSE,RANDOM 156.0 mg/dL (70-105); SODIUM SERUM 139.0 mmol/L (136-145)
[2025-06-09 06:10] LABS: UREA NITROGEN, BLOOD 78.0 mg/dL (7-18)
[2025-06-09 07:30] VITALS: O2SAT 98
[2025-06-09 08:00] VITALS: BP 133/79; PULSE 89; RESP 18; TEMP 97.6
--- NOTE | 2025-06-09 09:14 | PN ---
DIALYSIS NOTE SUBJECTIVE: The patient is seen and evaluated, on hemodialysis, prescription noted. PHYSICAL EXAMINATION: VITAL SIGNS: Blood pressure 138/65. CARDIOVASCULAR: Regular. LUNGS: Coarse. IMPRESSION: ESRD. PLAN: The patient will continue with maximum ultrafiltration as blood pressure allows. The patient is status post AV access placement. Once the patient is discharged, he will follow up at the dialysis unit. TID: [id number] RECEIPT: [id number]
--- NOTE | 2025-06-09 10:00 | NUR ---
U/S GD PARACENTESIS PROCEDURE PERFORMED BY DR Nima SUTTON. PUNCTURE SITE RLQ AND PATIENT TOLERATED PROCEDURE WELL. TOTAL REMOVED 8.8 LITERS OF CLOUDY YELLOW FLUID. END OF PROCEDURE AT 0945. CATHETER REMOVED AND DRESSING APPLIED. NO BLEEDING NOTED. REPORT GIVEN TO MIR GRIFFIN AND PATIENT TRANSPORTED TO [facility] VIA W/C AT 1000.
[2025-06-09] MEDS: ALBUMIN HUMAN 25% 200 ML IV ONE (11:12)
[2025-06-09 12:00] VITALS: BP 119/55; PULSE 80; RESP 18; TEMP 97.5
[2025-06-09 13:00] LABS: BODY FLUID RBC 76 /cu. mm.; BODY FLUID WBC 313 /cu. mm.
[2025-06-09 13:04] LABS: APPEARANCE BODY FLUID SLIGHTLY CLOUDY (CLEAR); SPECIMENTYPE,BODY FLUID ASCITES
[2025-06-09 13:05] LABS: COLOR,BODY FLUID YELLOW (LT YELLOW); TOTAL VOLUME,BODY FLUID 8800 mL
--- NOTE | 2025-06-09 13:26 | HMCIMG ---
US ABDOMINAL PARACENTESIS IR REASON: existing ascites, liver cirrhosis TECHNIQUE: Paracentesis was performed with ultrasound guidance. The puncture site was selected in the Right lower quadrant and overlying skin prepped and draped in a sterile fashion. 1% Xylocaine infiltration was performed. Catheter was placed in the fluid using trocar technique. 8.8 L were removed. Fluid sample was submitted for laboratory evaluation. The patient showed no evidence of complication during the procedure. Patient was given albumin IMPRESSION: 1. Ultrasound-guided paracentesis.
--- NOTE | 2025-06-09 13:46 | NUR ---
DISCHARGE JIMMIE HAYDEN'D PATIENT INFORMED TO GO TO HD AT [facility] APPOINTMENT FOR DIALYSIS AT 6:10 CALLED RENAL CARE [phone] TO INFORM THEM THAT PATIENT WAS DISCHARGED AND WILL BE HEADING THEIR WAY ALL QUESTIONS ANSWERED PRIOR TO DISCHARGE
--- NOTE | 2025-06-09 13:59 | DS ---
[facility] DISCHARGE SUMMARY Date Patient Seen: Jun 09, 2025 Time of Visit: 13:58 Supervising Physician: Dr. Issac Reyna Primary Care Physician: Dr. Pat Richey Outpatient Specialists: Dr. Carrillo (Nephrology) Inpatient Consults: Dr. Carrillo (Nephrology) HOSPITAL COURSE: HPI (per admitting provider) 70-year old male with past medical history of CKD, DM type 2, HTN, HLD presented to the ER after being sent by blind aide for possible hemodialysis. On arrival to the ER, creatinine 4, GFR 15 and BUN 100. CXR negative for fin dings. Upon assessment, patient is AAOX3. Currently on room air. Noted to have anasarca and fluid overload. Nephrology already ordered permcath to be inserted by freezer laboratory technician. Patient states he saw his it network engineer Dr. Mcadams one week ago and had second paracentesis this past Sunday with 7 liters removed. Denies any chest pain, abdominal pain, nausea or vomiting. Patient will be admitted for treatment, goals of care explained, verbalized understanding. The patient was treated for the following problems: Patient was admitted for evaluation of new onset ascites secondary to suspected liver cirrhosis as well as worsening of the patient's CKD resulting in initiation of hemodialysis on this admission. Patient is s/p right arm fistula creation on 06/08/2025 as well as PermCath placement on 06/03. He is being discharged with scheduled hemodialysis later today to continue on a TTS schedule. Recommendations to follow up with his PCP following his discharge for continued monitoring of the patient's ascites and cirrhosis as well as healing of the patient's newly forearm fistula. ACTIVE PROBLEM LIST FOR THE HOSPITALIZATION: BRYCE on CKD stage V S/P permcath placement by IR on 06/03/2025 with initiation of hemodialysis S/P right arm fistula creation on 06/08/25 Chronic combined CHF, LVEF 25% per Echo on 01/2025, compensated Anasarca due to above Liver cirrhosis, new diagnosis per CT abdomen Ascites with recent paracentesis on 06/01/25 with 7 liters removed CHRONIC PROBLEMS: continue previous management per PCP unless otherwise indicated Chronic atrial fibrillation on Eliquis (last dose on 05/30/25) DM type 2 AICD status due to cardiomyopathy Hypertension Hyperlipidemia Morbid obesity, BMI 34 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 PCP notified of patients admission, hospital course and discharge. PHYSICAL EXAM: GENERAL: alert, weak, awake oriented x 3 HEENT: EOMI, Sclera non icteric, moist mucosa NECK: Supple, no JVD, trachea midline LUNGS: Clear breath sounds bilaterally. No wheezes HEART: Regular rate and rhythm. Normal S1 and S2, without murmurs ABD: Abdomen soft, nontender. Bowel sounds present EXT: No clubbing cyanosis or edema NEURO: Alert and oriented to person, follows commands FOLLOW-UP: Follow-up with PCP in 2-3 days RECOMMENDATIONS: See Discharge Instructions This case was seen and discussed with my supervising physician. More than 30 minutes spent on discharge process, including evaluation of the patient, disc ussion with nursing staff, medication reconciliation and follow-up appointments MAURO ARZATE Jun 09, 2025 13:59
[2025-06-09 14:06] LABS: BF LYMPHOCYTE 16 %; BF MACROPHAGE 22; BF MONOCYTE 20 %; BF NEUTROPHIL 42.0 %; BF TOTAL CELLS COUNTED 100
--- NOTE | 2025-06-10 03:38 | PN ---
SUBJECTIVE: A 70-year-old gentleman status post right AV fistula yesterday, coursing postoperative day #1. OBJECTIVE: GENERAL: Awake, alert, in no acute distress. VITAL SIGNS: Stable as recorded in the medical record. CHEST: Sternum stable. Incision sealed. EXTREMITIES: Warm and well perfused. Pulses present. He has got a nice thrill. Incision is healed, sealing. PLAN: * Monitor thrill and monitor development of AV fistula. * Exercise program. * Reevaluate fistula in 6 weeks to 3 months. Once it reaches 3.5 mm, it could be utilized for hemodialysis. TID: [id number] RECEIPT: [id number]
== END 2025-06-09 14:00 | disposition home or self-care (01) | DRG 674 ==
LOC: EDH 06:52 → OBSVTOIN 10:25 → EDHIP 10:25 → 4BH 13:20
PROVIDERS: ADMIT Internal Medicine; ATTEND Internal Medicine
PROC: 5A1D70Z Performance of Urinary Filtration, Intermittent, Less than 6 Hours Per Day (ICD-10-PCS; 2025-06-03)
PROC: 02HV33Z Insertion of Infusion Device into Superior Vena Cava, Percutaneous Approach (ICD-10-PCS; 2025-06-03)
PROC: B5181ZA Fluoroscopy of Superior Vena Cava using Low Osmolar Contrast, Guidance (ICD-10-PCS; 2025-06-03)
PROC: B548ZZA Ultrasonography of Superior Vena Cava, Guidance (ICD-10-PCS; 2025-06-03)
PROC: 05HM33Z Insertion of Infusion Device into Right Internal Jugular Vein, Percutaneous Approach (ICD-10-PCS; 2025-06-03)
PROC: B5131ZA Fluoroscopy of Right Jugular Veins using Low Osmolar Contrast, Guidance (ICD-10-PCS; 2025-06-03)
PROC: 5A1D70Z Performance of Urinary Filtration, Intermittent, Less than 6 Hours Per Day (ICD-10-PCS; 2025-06-04)
PROC: 5A1D70Z Performance of Urinary Filtration, Intermittent, Less than 6 Hours Per Day (ICD-10-PCS; 2025-06-05)
PROC: 0W9G3ZZ Drainage of Peritoneal Cavity, Percutaneous Approach (ICD-10-PCS; 2025-06-08)
PROC: 03170AD Bypass Right Brachial Artery to Upper Arm Vein with Autologous Arterial Tissue, Open Approach (ICD-10-PCS; principal; 2025-06-08 12:10)
DX: N17.9 Acute kidney failure, unspecified (principal); I13.2 Hypertensive heart and chronic kidney disease with heart failure and with stage 5 chronic kidney disease, or end stage renal disease; I50.42 Chronic combined systolic (congestive) and diastolic (congestive) heart failure; J98.11 Atelectasis; N18.6 End stage renal disease; E66.01 Morbid (severe) obesity due to excess calories; E78.5 Hyperlipidemia, unspecified; I25.10 Atherosclerotic heart disease of native coronary artery without angina pectoris; E11.22 Type 2 diabetes mellitus with diabetic chronic kidney disease; Z68.34 Body mass index [BMI] 34.0-34.9, adult; I25.5 Ischemic cardiomyopathy; D64.9 Anemia, unspecified; E11.51 Type 2 diabetes mellitus with diabetic peripheral angiopathy without gangrene; I48.0 Paroxysmal atrial fibrillation; Z95.810 Presence of automatic (implantable) cardiac defibrillator; Z99.2 Dependence on renal dialysis; Z79.01 Long term (current) use of anticoagulants; Z87.891 Personal history of nicotine dependence; K74.60 Unspecified cirrhosis of liver
CPT/HCPCS: 36415; 36558; 49083; 71045; 74176; 77001; 80048; 80053; 80061; 82040; 82550; 82565; 82728; 82948; 83036; 83540; 83550; 83735; 84100; 84484; 84520; 85014; 85018; 85025; 85027; 85610; 85730; 86701; 86704; 86706; 86803; 86850; 86900; 86901; 87071; 87205; 87340; 87390; 89051; 90935; 93005; 93971; 99156; 99157; 99285; C1729; C1750; C1769; G0378; J0690; J1644; J1756; J2250; J3010; J3490; J7030; J7050; P9046; P9047; Q9967; A4216; A4222; A4223; A4649; A4930; A5120; A6251; C1713; C1894; Q5106

== ENCOUNTER 2025-07-05 20:48 | Observation (INO) | payer OTHER ==
[~2025-07-05] VITALS: Ht 165.1 cm; Wt 82.8 kg
[~2025-07-05 20:48] MED LIST changes: -AMLO2.5T4 PO; -ASPI-1012 PO; +HYDR50TA37 PO; -SACU1TAB7 PO; +SEVE800PW PO
--- NOTE | 2025-07-05 21:04 | EKG ---
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1955 Requested By: GURWINDER LANDIN Order Number: [id number] Reading MD: Lesa Guadalupe Measurements Intervals [place] Rate: 132 P: 0 HI: 0 QRS: -48 QRSD: 119 T: 128 QT: 359 QTc: 486 Interpretive Statements Afib/flut and V-paced complexes Nonspecific IVCD with LAD Inferior infarct, old Anterior infarct, old Nonspecific T abnormalities, lateral leads Compared to ECG 06/03/2025 07:36:50 Intraventricular conduction delay now present Myocardial infarct finding now present T-wave abnormality now present Atrial-paced complex(es) or rhythm no longer present Left bundle-branch block no longer present Electronically Signed On 07-06-2025 08:32:27 CDT by Lesa Guadalupe Please click the below link to view image of tracing.
--- NOTE | 2025-07-05 21:28 | ERN ---
ED Note History of Present Illness Stated Complaint: SOB, EDEMA BILATERAL LOWER EXT AND ABD Chief Complaint: Multiple Complaints Time Seen by MD: 20:52 Dictation: This is a 70-year-old male who presented to the emergency room with complaints of shortness of breath increasing lower extremity edema and abdominal wall edema. He also reported PND and orthopnea which has been going on for a few days now and mild discomfort in his left chest starting yesterday. Patient has a end-stage renal disease on dialysis Sunday schedule. Apparently when he went on Sunday his heart rate was very high so they could not do the dialysis. Stated that since he has not had dialysis he has been retaining more water and is quite short of breath and ants comes in for evaluation. No cough sputum or hemoptysis. No radiation of the chest pain to any other area. No syncope or diaphoresis. Temperature 98.2 pulse 144 respirations 24 blood pressure 95/68 with a pulse oximetry of 97% on room air Chronic medical problems include history of CVA, coronary artery disease, atrial fibrillation, history of congestive heart failure, diabetes mellitus, hypertension, hypercholesterolemia and end-stage renal disease on hemodialysis. He also has a end-stage cardiomyopathy with an ejection fraction of 15%. He has not AICD/pacemaker Allergies: Coded Allergies: No Known Drug Allergies (Unverified Allergy, Unknown, 12/22/16) Home Meds Active Scripts Metoprolol Succinate (Toprol Xl) 25 Mg Tab.er.24h, 75 MG PO BID, #30 TAB 0 Refills Prov:MATHEW VALENTIN MOTOR POOL CLERK 12/04/22 Reported Medications Sevelamer Carbonate (Renvela Pwdr) 0.8 Gram Powder, 800 MG PO TID, APPL 06/03/25 Hydralazine HCl (Hydralazine HCl) 50 Mg Tablet, 1 TAB PO TID for 30 Days, #90 TAB 0 Refills 06/03/25 Isosorbide Mononitrate (Isosorbide Mononitrate ER) 30 Mg Tab.er.24h, 1 TAB PO DAILY for 30 Days, #30 TAB 0 Refills 02/09/25 Furosemide (Furosemide) 20 Mg Tablet, 40 MG PO DAILY, TAB 04/14/24 Atorvastatin Calcium (LIPITOR) 80 Mg Tablet, 80 MG PO DAILY, TAB 05/16/22 Past Medical History Past Medical History: A-Fib, CHF, CVA, Diabetes-Type II, High Cholesterol, Heart Disease, Hypertension Surgical History: CABG, Pacer/AICD, Other Surgical History Other: LT SHOULDER SX Family History: Negative RN Note Reviewed/Agreed w/PFSH: Yes Review of System Dictation Constitutional: Negative for fever,chills, and weight loss Eyes: Negative for injury, pain,redness, and discharge ENT: Negative for injury,pain or swelling Cardiovascular: Positive for chest discomfort, palpitations, and edema Respiratory: Positive for shortness of breath, denied cough, and wheezing, Abdomen/GI: Positive for abdominal distention denied nausea, vomiting, diarrhea, and constipation Back: Negative for injury and pain : Negative for injury, bleeding and discharge MS/Extremity: Negative for injury and deformity Skin: Negative for rash, and discoloration Neuro: Negative for headache, weakness, numbness, tingling, and seizure Psych: Negative for suicide ideation, homicidal ideation, and hallucinations Initial Vital Sign VS Vital Signs Date Time Temp Pulse Resp B/P (MAP) Pulse Ox O2 Delivery O2 Flow Rate FiO2 07/05/25 20:50 98.2 144 24 95/68 97 Room Air 07/05/25 21:00 0 21 Physical Exam Dictation General: awake, alert, NAD chronically ill-appearing, temporal wasting Head/Face: Normocephalic, atraumatic Eyes: PERRL, EOMI, vision at baseline ENT: oral cavity clear, TMs clear, no signs of infection Neck: Trachea midline, supple, no nuchal rigidity Cardiovascular: RRR, normal S1/S2, No MRGs, positive JVD . Cardiac device pacemaker/AICD in the anterior axillary line lower in the chest Respiratory: Decreased breath sounds at the bases, no respiratory distress, No rales or wheezes Abdomen: Soft, non-tender, distended, normal bowel sounds, no guarding or rebound. Tense ascites Skin: Warm, dry, normal turgor, no rash MS/Extremity: Pulses equal, no cyanosis, neurovascular intact, FROM Neuro: COAx4, GCS 15, strength 5/5, CN 2-12 intact, normal cerebellar exam, normal gait, Psych: Normal behavior, mood, and affect normal Extremities-1+ edema without any palpable cords, Homans sign is negative Results (Laboratory/Radiology) Laboratory/Radiology Laboratory Tests Test 07/05/25 21:15 White Blood Count 9.9 K/uL (4.8-10.8) Red Blood Count 3.60 MIL/uL (4.50-6.20) L Hemoglobin 10.6 g/dL (14.0-18.0) L Hematocrit 35.2 % (42-54) L Mean Corpuscular Volume 97.8 fL (79-99) Mean Corpuscular Hemoglobin 29.4 pg (27.0-33.0) Mean Corpuscular Hemoglobin Concent 30.1 g/dL (32.0-36.0) L Red Cell Distribution Width 17.1 % (11.0-15.5) H Platelet Count 127 K/uL (130-400) L Mean Platelet Volume 12.1 fL (7.5-10.5) H Immature Granulocyte % (Auto) 0.4 % (0-1) Neutrophils (%) (Auto) 74.6 % (40.0-77.0) Lymphocytes (%) (Auto) 15.9 % (21.0-51.0) L Monocytes (%) (Auto) 6.8 % (3.0-13.0) Eosinophils (%) (Auto) 1.5 % (0.0-8.0) Basophils (%) (Auto) 0.8 % (0.0-5.0) Neutrophils # (Auto) 7.4 K/uL (1.8-7.7) Lymphocytes # (Auto) 1.6 K/uL (1.0-4.8) Monocytes # (Auto) 0.7 K/uL (0.1-1.0) Eosinophils # (Auto) 0.15 K/uL (0.00-0.70) Basophils # (Auto) 0.08 K/uL (0.00-0.20) Absolute Immature Granulocyte (auto 0.04 K/uL (0-1) Nucleated Red Blood Cells 0.0 % (0.0-0.19) Red Blood Cell Morphology See comments Sodium Level 139 mmol/L (136-145) Potassium Level 4.3 mmol/L (3.5-5.1) Chloride Level 98 mmol/L (101-111) L Carbon Dioxide Level 32 mmol/L (21-32) Blood Urea Nitrogen 63 mg/dL (7-18) H Creatinine 5.1 mg/dL (0.5-1.3) H Glomerular Filtration Rate Calc 11 mL/min (>90) Random Glucose 210 mg/dL (70-105) H Total Calcium 8.2 mg/dL (8.5-10.1) L Total Creatine Kinase 49 U/L (21-232) # Troponin I High Sensitivity 368 ng/L (4-75) *H Labs Reviewed?: Yes EKG Comment: Twelve lead EKG done on 07/05/2025 at 8:59 p.m. showed a heart rate of 132, QRS 119, QT/QTC 359/486. Impression atrial fibrillation with rapid ventricular response intraventricular conduction delay, old inferior infarct old anterior infarct. EKG rhythm strip shows AFib with rapid ventricular response intraventricular c onduction delay. Interpreted by ER MD Dr. Hallman X-RAY Comment: LAI: CHEST PAIN ORDERING PHYSICIAN: KARMA HALLMAN MD PROCEDURE: CXR1VW - CHEST 1VW EXAM: CR Chest, 1 view CLINICAL HISTORY: Chest pain. COMPARISON: Chest radiograph dated 06/03/2025. FINDINGS: Poor inspiratory effort limits the optimal evaluation. The right side dual-lumen catheter tip overlies the right atrium. The lungs show no infiltrates or other acute findings. Mild subsegmental atelectasis around the left mid to lower zones. No pleural effusion or pneumothorax. The cardiomediastinal silhouette is within normal limits. Status poststernotomy. Left-sided cardiac pacemaker device in place. No acute osseous abnormality. IMPRESSION: No acute cardiopulmonary process is evident. Mild subsegmental atelectasis around the left mid to lower zones. A new finding. /Isabel DICTATED BY: BRANDEN DAY Jr., MD DATE: 07/05/252357 ELECTRONICALLY SIGNED BY: BRANDEN DAY Jr., MD DATE: 07/05/252357 ED Course ED Course Orders Procedure Category Date Status Time Vital Signs Per CPOE 07/05/25 Transmitted Routine 20:53 Chest 1vw RAD 07/05/25 Resulted 20:53 12 Lead Ekg Tracing- EKG 07/05/25 Complete Technical 20:53 Oxygen By Nc/Pulse Ox CPOE 07/05/25 Transmitted 20:53 Maintain Iv CPOE 07/05/25 Transmitted 20:53 Iv Insertion CPOE 07/05/25 Transmitted 20:53 Cardiac Monitoring CPOE 07/05/25 Transmitted 20:53 Pulse Oximetry With CPOE 07/05/25 Transmitted Vs And Prn 20:53 Cbc With Differential LAB 07/05/25 Complete 20:53 Activity: Br W/Brp CPOE 07/05/25 Transmitted With Assist 20:53 Creatine Kinase, Total LAB 07/05/25 Complete 20:53 Troponin I High LAB 07/05/25 Complete Sensitivity 20:53 Urinalysis Profile LAB 07/05/25 Logged 20:53 Basic Metabolic Panel LAB 07/05/25 Complete 20:53 Metoprolol Tartrate PHA 07/05/25 Complete (Lopressor) 21:30 Edm Admit Bridge Order ADM 07/05/25 Transmitted 23:01 Vital Signs Every 4 CPOE 07/06/25 Transmitted Hours 00:15 Orthostatic Vital CPOE 07/06/25 Transmitted Signs 00:15 Daily Weights CPOE 07/06/25 Transmitted 00:15 I&O Q Shift CPOE 07/06/25 Transmitted 00:15 Activity: Bed Rest CPOE 07/06/25 Transmitted 00:15 Renal Dialysis Diet DIET 07/06/25 Transmitted Breakfast Albuterol 0.083% PHA 07/06/25 In Process 2.5mg/3ml (Proventil 00:30 Cbc With Differential LAB 07/07/25 Verified 04:00 Basic Metabolic Panel LAB 07/07/25 Verified 04:00 Magnesium LAB 07/07/25 Verified 04:00 Phosphorus LAB 07/07/25 Verified 04:00 Pantoprazole 40mg Tab PHA 07/06/25 In Process (Protonix 40mg Tab 09:00 Acetaminophen 325 Tab PHA 07/06/25 In Process (Tylenol 325mg Tab 00:30 Acetaminophen 650mg PHA 07/06/25 In Process Supp (Tylenol 650mg 00:30 Ondansetron 4mg Inj PHA 07/06/25 In Process (Zofran 4mg Inj) 00:30 Hydralazine 20mg Inj PHA 07/06/25 In Process (Apresoline 20mg In 00:30 Labetalol 20mg Syg PHA 07/06/25 In Process (Trandate 20mg Syg) 00:30 Apply Scds CPOE 07/06/25 Transmitted 00:15 Elevate Hob At 30 CPOE 07/06/25 Transmitted Degrees 00:15 Admit Orders ADM 07/06/25 Transmitted 00:15 Telemetry Monitoring CPOE 07/06/25 Transmitted 00:15 Initiate CRISTIANO 07/06/25 In Process Hyperglycemia Protoco 00:15 Insulin Regular, PHA 07/06/25 In Process Human 3ml (Humulin R 07:30 Current Medications Medications (Trade) Dose Ordered Sig/Katty Route PRN Reason Start Time Stop Time Status Last Admin Dose Admin Metoprolol Tartrate (loprESSOR) 2.5 mg ONCE ONCE IV 07/05/25 21:30 07/05/25 21:31 DC 07/05/25 21:44 Vital Signs Date Time Temp Pulse Resp B/P (MAP) Pulse Ox O2 Delivery O2 Flow Rate FiO2 07/06/25 01:00 18 N/A Room Air 21 07/06/25 00:55 98.2 87 17 119/65 99 Room Air* 0 07/06/25 00:07 98.2 105 20 135/70 99 Room Air* 0 07/05/25 23:00 98.2 103 22 115/58 99 Room Air* 0 07/05/25 21:44 125 109/72 07/05/25 21:00 98.2 97 22 118/62 99 Room Air* 0 07/05/25 20:50 98.2 144 24 95/68 97 Room Air We will perform diagnostic labs, advanced imaging and administer medications according to the patient's complaint. Once the results are available, will review and personally interpreted the labs to rule out any acute life- threatening emergency the trach require immediate intervention and treatment. I will then re-evaluate the patient after treatment and diagnostic exams have return to determine whether the patient requires any further testing, can safely be discharged home or need further admission to hospital for additional treatment and evaluation. 11:00 p.m. patient accepted by [facility] mid-level provider for [facility] for admission of decompensated congestive heart failure and pulmonary edema with a end-stage renal disease. HEART Score Response (Comments) Value History: Moderate suspicion (+1) 1 EKG: Repolarization changes 1 Age: > 65yrs (+2) 2 Risk Factors: 3+ risk factors (+2) 2 Initial Troponin: Normal limit (0) 0 HEART Score Risk: Mod Risk for MACE (4-6) Total 6 Medical Decision Making MDM Differential diagnosis: Pulmonary edema, unstable angina with a new coronary event, pleural effusions, ascites, atrial fibrillation with rapid ventricular response This is a 70-year-old male who presented to the emergency room with complaints of shortness of breath increasing lower extremity edema and abdominal wall edema. He also reported PND and orthopnea which has been going on for a few days now and mild discomfort in his left chest starting yesterday. Patient has a end-stage renal disease on dialysis Sunday schedule. Apparently when he went on Sunday his heart rate was very high so they could not do the dialysis. Stated that since he has not had dialysis he has been retaining more water and is quite short of breath and ants comes in for evaluation. No cough sputum or hemoptysis. No radiation of the chest pain to any other area. No syncope or diaphoresis. Temperature 98.2 pulse 144 respirations 24 blood pressure 95/68 with a pulse oximetry of 97% on room air Chronic medical problems include history of CVA, coronary artery disease, atrial fibrillation, history of congestive heart failure, diabetes mellitus, hypertension, hypercholesterolemia and end-stage renal disease on hemodialysis, severe end-stage cardiomyopathy 10:55 p.m. labs reviewed CBC showed a white count of 9.9 hemoglobin 11.6 platelets 127. Troponins elevated at 368. BNP 7 shows a BUN and creatinine of 63 and 5.1 with a glucose of 210 Chest x-ray shows bilateral pulmonary edema pattern. I had a discussion with the patient and his and recommended admission to [facility] due to tachycardia hypotension with a end-stage cardiomyopathy and massive ascites which may require paracentesis for relief. The possibility of a demand ischemia is a serious consideration at this time. They both are agreeable Rationale: Tests considered and ordered secondary to shared decision making include: labs, ECG and radiology Previous outside records reviewed: Old ER visits. Risk of complication and/or morbidity or mortality of patient management: None Medications-Per medication reconciliation Need for hospitalization: Patient does meet criteria for hospitalization. Need for emergency major/minor surgery: No There are no social concerns with this patient. Prescription drug management Prescriptions will include symptomatic care Patient's prior external medical records from other ER visits were reviewed by me as indicated. Prior testing and results from previous visits were reviewed. Prior tests were taken into account with medical decision making and resource utilization, independent historian/historians were used to obtain complete medical history. I independently interpreted the test that were performed, results were reviewed by me and considered findings on radiology if ordered. Medical management and examination interpretation discussions were had by me with other qualified healthcare professionals as indicated for the patient's care. Problem List Problem List: (1) Decompensated heart failure (2) Pulmonary edema (3) End-stage renal disease on hemodialysis (4) Dilated cardiomyopathy (5) Presence of combination internal cardiac defibrillator (ICD) and pacemaker (6) Ascites (7) Cardiac cirrhosis (8) Cardiorenal syndrome with renal failure (9) Atrial fibrillation with rapid ventricular response Critical Care Note Critical Time: 45 minutes Comment(s) Life-threatening illness;-decompensated congestive heart failure, pulmonary edema, severe tachycardia and low-flow state, dilated cardiomyopathy, end-stage renal disease on hemodialysis, I have also a concern for pacemaker AICD migration all the way down into the chest. Risk of morbidity mortality-high Complexity of medical decision making-high (X) high probability of sudden clinically significant deterioration in the patient's condition required the highest level of my preparedness to intervene urgently. I provided critical care services requiring my direct and personal management as noted below; (x) chart data review (x) reviewing nurse's notes and/charts (x) documentation time (x) consultation collaboration on findings and therapy options (x) medication orders and management (x) re-evaluations (x) care, transfer of care, and discharge plans (x) ordering and interpreting studies (x) ordering and reviewing labs (x) obtaining necessary history from family, EMS, half-way, private MD, surrogate decision makers because patient was unable to give history due to limitations in the mental status (x) aggregate critical care time was ( 45 ) minutes. This includes only time during which I was engaged in work directly related to the patient's care as described above whether at the bedside or elsewhere in the ER while the patient was critical. My time did not include minutes spent treating any other patients simultaneously or on activities that did not directly contribute to the patient's treatment. It did not include time spent performing other reported procedures or services of residents if any. Karma VELASCOCP DX & DISP Disposition: Inpatient Decision to Admit Time: 21:28 Departure Impression: Primary Impression: Decompensated heart failure Additional Impressions: Pulmonary edema, End-stage renal disease on hemodialysis, Dilated cardiomyopathy, Presence of combination internal cardiac defibrillator (ICD) and pacemaker, Ascites, Cardiac cirrhosis, Cardiorenal syndrome with renal failure, Atrial fibrillation with rapid ventricular response, NSTEMI (non-ST elevated myocardial infarction), End stage renal disease Condition: Stable Additional Instructions: Patient was informed of all the diagnostic labs and procedures conducted in the emergency room today and demonstrated understanding of the results. I personally reviewed and interpreted all the diagnostic exams performed in the ER today. The patient will be admitted to the hospital for further treatment and evaluation. Disposition-admit to facility Condition-stable/guarded Course-uncertain at this time Pain status-decreased Assessment-exam unchanged Admission Certification- I certify that the patients status is appropriate and is based on my best clinical judgment and the patient's condition as documented in the medical records Referrals: ZACARIAS MOSELEY M.D. (PCP) KARMA HALLMAN MD Jul 05, 2025 21:28
[2025-07-05 21:49] LABS: IMMATURE GRANULOCYTE ABSOLUTE 0.04 K/uL (0-1); NUCLEATED RED BLOOD CELLS 0.0 % (0.0-0.19); PLATELET COUNT (AUTO) 127 K/uL (130-400); RED BLOOD CELL COUNT(AUTO) 3.60 MIL/uL (4.50-6.20); RED CELL DISTRIBUTION WIDTH 17.1 % (11.0-15.5); WHITE BLOOD COUNT (AUTO) 9.9 K/uL (4.8-10.8)
--- NOTE | 2025-07-05 22:00 | NUR ---
TRIAGE EDIT TO CORRECT HD NEW SCHEDULE
[2025-07-05 22:02] LABS: SODIUM SERUM 139.0 mmol/L (136-145)
[2025-07-05 22:03] LABS: CREATININE 5.1 mg/dL (0.5-1.3); GLOMERULAR FILTR. RATE CALC 11.0 mL/min (>90); GLUCOSE,RANDOM 210.0 mg/dL (70-105); UREA NITROGEN, BLOOD 63.0 mg/dL (7-18)
[2025-07-05 22:09] LABS: CREATINE KINASE, TOTAL 49.0 U/L (21-232)
--- NOTE | 2025-07-05 23:00 | HMCIMG ---
EXAM: CR Chest, 1 view CLINICAL HISTORY: Chest pain. COMPARISON: Chest radiograph dated 06/03/2025. FINDINGS: Poor inspiratory effort limits the optimal evaluation. The right side dual-lumen catheter tip overlies the right atrium. The lungs show no infiltrates or other acute findings. Mild subsegmental atelectasis around the left mid to lower zones. No pleural effusion or pneumothorax. The cardiomediastinal silhouette is within normal limits. Status poststernotomy. Left-sided cardiac pacemaker device in place. No acute osseous abnormality. IMPRESSION: No acute cardiopulmonary process is evident. Mild subsegmental atelectasis around the left mid to lower zones. A new finding. /[place]
--- NOTE | 2025-07-05 23:59 | NUR ---
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
[2025-07-06] VITALS (19 sets, daily range): BP systolic 103–121; BP diastolic 52–74; PULSE 65–125; RESP 16–18; TEMP 97.7–97.9; O2SAT 95–100
--- NOTE | 2025-07-06 00:29 | HP ---
[facility] HISTORY & PHYSICAL Date Patient Seen: Jul 06, 2025 Time of Visit: 00:18 Supervising Physician: Dr Marc Fletcher Primary Care Physician: Dr Richey Outpatient Specialists: Lorena (Renal) , Abbe (Cardio) Inpatient Consults: [ ] PROBLEM LIST: Acute respiratory insufficiency POA Hypertension, POA Hyperlipidemia, POA ESRD on HD via right upper chest HD catheter, status post for arm AV fistula, TTS, POA Chronic atrial fibrillation on Eliquis (last dose on 05/30/25) Chronic combined CHF, LVEF 25% per Echo on 01/2025, s s/p AICD in situ, POA Ascites with recent paracentesis on 06/01/25 Anasarca, POA Electrolyte abnormality, POA DM type 2, with hyperglycemia, POA PLAN: Admit to medical-surgical floor VS per unit protocol Continue cardiac monitoring Complete bedrest for now Keep potassium level above four, magnesium level above two Keep SBP less than 160 P.r.n. hydralazine labetalol ISS and fingerstick per unit protocol Keep serum glucose less than 150 Keep patient in ED home for possible paracentesis in a.m. Bilateral SCDs Patient daily Strict I&O DuoNeb q.6 as needed for shortness of breaths O2 therapy to keep O2 saturation above 90% Incentive spirometry CBC, CMP, magnesium level daily HPI: 70-year-old male with past medical history of congestive heart failure, atrial fibrillation, on chronic anticoagulation, ESRD on HD via right upper [address] st does show, with dialysis schedule off Sunday, , and Sunday, hypertension, hyperlipidemia, DM type 2 who presented to ED via private vehicle with complaint of difficulty breathing and abdominal distention and found to have acute insufficiency, and possible large ascites,/anasarca. Apparently patient was recently discharged from this hospital last month at that time patient was found to have large ascites requiring paracentesis, per report they remove7 L of fluid. Patient again presented today with similar complaint, with associated abdominal distention and some difficulty breathing. Patient was also found to have rapid heart rate on initial evaluation in ED requiring Lopressor IV. Initial workup in ED showed unremarkable CBC, his chemistry consistent with chronic kidney disease, chest x-ray unrevealing for any acute infiltrates. On evaluation patient has some abdominal distention, and 3+ bilateral pitting edema. Apparently patient underwent hemodialysis yesterday but was not able to finish it due to rapid heart rate and blood pressure instability. His last full HD was as , but patient can not confirm how much fluid was removed. At present patient is currently hemodynamically stable, still AFib on the monitor, on room air with appropriate oxygen saturation, does not appear in distress, denies any headache, chest pain, abdominal pain, fever, or flu-like symptoms. PAST MEDICAL HX: see above PAST SURGICAL HX: noncontributory SOCIAL HISTORY: No tobacco, ETOH, or illicit drug use Coded Allergies: No Known Drug Allergies (Unverified Allergy, Unknown, 12/22/16) REVIEW OF SYSTEMS: 12 point ROS reviewed with patient. Pertinent positives mentioned above. Otherwise negative. PHYSICAL EXAM: GENERAL: alert, weak, awake oriented x 3, looks pale HEENT: EOMI, Sclera non icteric, moist mucosa NECK: Supple, no JVD, trachea midline LUNGS: Diminished bibasilar area HEART: AFib with a monitor. Normal S1 and S2, without murmurs ABD: Distended and tight abdomen. Bowel sounds present EXT: No clubbing cyanosis, 3+ pitting edema bilaterally NEURO: Alert and oriented to person, follows commands Vital Signs (last 8hr) Date Time Temp Pulse Resp B/P (MAP) Pulse Ox O2 Delivery O2 Flow Rate FiO2 07/06/25 00:07 98.2 105 20 135/70 99 Room Air* 0 21 07/05/25 23:00 98.2 103 22 115/58 99 Room Air* 0 07/05/25 21:44 125 109/72 07/05/25 21:00 98.2 97 22 118/62 99 Room Air* 0 21 07/05/25 20:50 98.2 144 24 95/68 97 Room Air LABS: Hematology Labs: Test 07/05/25 21:15 Range/Units White Blood Count 9.9 4.8-10.8 K/uL Red Blood Count 3.60 L 4.50-6.20 MIL/uL Hemoglobin 10.6 L 14.0-18.0 g/dL Hematocrit 35.2 L 42-54 % Mean Corpuscular Volume 97.8 79-99 fL Mean Corpuscular Hemoglobin 29.4 27.0-33.0 pg Mean Corpuscular Hemoglobin Concent 30.1 L 32.0-36.0 g/dL Red Cell Distribution Width 17.1 H 11.0-15.5 % Platelet Count 127 L 130-400 K/uL Mean Platelet Volume 12.1 H 7.5-10.5 fL Immature Granulocyte % (Auto) 0.4 0-1 % Neutrophils (%) (Auto) 74.6 40.0-77.0 % Lymphocytes (%) (Auto) 15.9 L 21.0-51.0 % Monocytes (%) (Auto) 6.8 3.0-13.0 % Eosinophils (%) (Auto) 1.5 0.0-8.0 % Basophils (%) (Auto) 0.8 0.0-5.0 % Neutrophils # (Auto) 7.4 1.8-7.7 K/uL Lymphocytes # (Auto) 1.6 1.0-4.8 K/uL Monocytes # (Auto) 0.7 0.1-1.0 K/uL Eosinophils # (Auto) 0.15 0.00-0.70 K/uL Basophils # (Auto) 0.08 0.00-0.20 K/uL Absolute Immature Granulocyte (auto 0.04 0-1 K/uL Nucleated Red Blood Cells 0.0 0.0-0.19 % Red Blood Cell Morphology See comments Chemistry Labs: Test 07/05/25 21:15 Range/Units Sodium Level 139 136-145 mmol/L Potassium Level 4.3 3.5-5.1 mmol/L Chloride Level 98 L 101-111 mmol/L Carbon Dioxide Level 32 21-32 mmol/L Blood Urea Nitrogen 63 H 7-18 mg/dL Creatinine 5.1 H 0.5-1.3 mg/dL Glomerular Filtration Rate Calc 11 >90 mL/min Random Glucose 210 H 70-105 mg/dL Total Calcium 8.2 L 8.5-10.1 mg/dL Total Creatine Kinase 49 # 21-232 U/L Troponin I High Sensitivity 368 *H 4-75 ng/L DIAGNOSTICS / RADIOLOGY RESULTS: EXAM: CR Chest, 1 view CLINICAL HISTORY: Chest pain. COMPARISON: Chest radiograph dated 06/03/2025. FINDINGS: Poor inspiratory effort limits the optimal evaluation. The right side dual-lumen catheter tip overlies the right atrium. The lungs show no infiltrates or other acute findings. Mild subsegmental atelectasis around the left mid to lower zones. No pleural effusion or pneumothorax. The cardiomediastinal silhouette is within normal limits. Status poststernotomy. Left-sided cardiac pacemaker device in place. No acute osseous abnormality. IMPRESSION: No acute cardiopulmonary process is evident. Mild subsegmental atelectasis around the left mid to lower zones. A new finding. PLAN NEURO: Minimize central acting medications as possible. Maintain fall precautions, adequate lighting during the day PULMONARY: Supplemental 02 as needed. Maintain aspiration precautions at all times CARDIOVASCULAR: Follow hemodynamics. Vital signs per facility protocol GI & NUTRITION: Continue with nutritional support. Continue stool softeners and laxatives as needed. KIDNEYS & ELECTROLYTES: Strict monitoring of intake, output and overall fluid balance. Avoid nephrotoxic medications to the extent possible. Medications to be dosed according to renal function. Monitor electrolytes and replace as needed ENDOCRINE: Maintain blood glucose between 100-180 at all times. Hypoglycemia protocol in place INFECTIOUS DISEASE: Trend temperature, WBC and procalcitonin level Follow cultures, deescalate antibiotics as soon as possible. Panculture if new onset fever ONCOLOGY/HEMATOLOGY/COAGULATION: Monitor for s/s of bleeding Monitor hemoglobin, coagulation studies as needed SKIN: Pressure ulcer prevention per facility protocol Specialty mattress ORTHO/REHAB: Continue PT/OT Prophylaxis: Continue GI and DVT prophylaxis Code Status: Full Resuscitation Disposition: TBD Supervising physician: SHIRA Gentile ATTENDING RADIOLOGIST Jul 06, 2025 00:29
[2025-07-06] MEDS ORDERED: ALBUTEROL 0.083% 2.5 MG/3 ML INH IH PRN (00:30)
[2025-07-06 07:01] LABS: IMMATURE GRANULOCYTE ABSOLUTE 0.06 K/uL (0-1); NUCLEATED RED BLOOD CELLS 0.0 % (0.0-0.19); PLATELET COUNT (AUTO) 172 K/uL (130-400); RED BLOOD CELL COUNT(AUTO) 3.72 MIL/uL (4.50-6.20); RED CELL DISTRIBUTION WIDTH 17.2 % (11.0-15.5); WHITE BLOOD COUNT (AUTO) 10.8 K/uL (4.8-10.8)
[2025-07-06 07:30] LABS: CREATININE 5.2 mg/dL (0.5-1.3); GLOMERULAR FILTR. RATE CALC 11.0 mL/min (>90); GLUCOSE,RANDOM 141.0 mg/dL (70-105); PHOSPHORUS 6.1 mg/dL (2.5-4.9); SODIUM SERUM 138.0 mmol/L (136-145); UREA NITROGEN, BLOOD 69.0 mg/dL (7-18)
--- NOTE | 2025-07-06 07:51 | PN ---
[facility] PROGRESS NOTE Date Patient Seen: Jul 06, 2025 Time of Visit: 07:51 Supervising Physician: Nasim Carolina MD Primary Care Physician: Dr Richey Outpatient Specialists: Lorena (Renal) , Abbe (Cardio) Inpatient Consults: [ ] PROBLEM LIST: Acute decompensated AFib with a RVR Acute hypoxemic respiratory failurePOA Hypertension, POA Hyperlipidemia, POA ESRD on HD via right upper chest HD catheter, status post for arm AV fistula, TTS, POA Chronic atrial fibrillation on Eliquis (last dose on 05/30/25) Chronic combined CHF, LVEF 25% per Echo on 01/2025, s s/p AICD in situ, POA Ascites with recent paracentesis on 06/01/25 Anasarca, POA Electrolyte abnormality, POA DM type 2, with hyperglycemia, POA PLAN: IR to perform paracentesis Follow Nephrology recommendations for hemodialysis Continue cardiac monitoring Metoprolol 12.5 mg p.o. b.i.d. Resume home meds once available Give albumin 25% 100 mL post paracentesis Keep serum glucose less than 150 Bilateral SCDs Patient daily Strict I&O Hold albuterol treatments O2 therapy to keep O2 saturation above 90% IS CBC, CMP, magnesium level daily INTERVAL HISTORY: Chart reviewed including all laboratory and imaging results. Patient assessed at bedside. He denies any chest pain shortness for breath at this time. He does report abdominal distention and firmness to abdomen. Patient will undergo IR paracentesis today. Hemodynamically stable. No major overnight events reported. Post paracentesis of 8 L out per IR. Was notified by the RN this patient's heart rate was 116 on the EKG AFib with a flutter with rate of 116 beats per minute. Administer Lopressor. Albumin 25% 100 mL given. We will continue patient with cardiac monitoring. Heart rate improving to 103 beats per minute. REVIEW OF SYSTEMS: General: No malaise or fever. Neurological: No fainting episodes or seizures. HEENT: No nasal congestion or nasal secretion. Respiratory: No cough, shortness of breath, or wheezing Cardiac: No chest pain or palpitations. Gastrointestinal: + abdominal distention Genitourinary: No dysuria hematuria. Skin: No rashes or lesions. Hematological: No bruises or bleeding. Musculoskeletal: No joint pains or arthralgias. Psychiatric: No depression or panic attacks. PHYSICAL EXAM: GENERAL: alert, weak, awake oriented x 3, looks pale HEENT: EOMI, Sclera non icteric, moist mucosa NECK: Supple, no JVD, trachea midline LUNGS: Diminished bibasilar area HEART: AFib with a monitor. Normal S1 and S2, without murmurs ABD: Distended and tight abdomen. Bowel sounds present EXT: No clubbing cyanosis, 3+ pitting edema bilaterally NEURO: Alert and oriented to person, follows commands Vital Signs (last 8hr) Date Time Temp Pulse Resp B/P (MAP) Pulse Ox O2 Delivery O2 Flow Rate FiO2 07/06/25 07:11 115 18 N/A Room Air 07/06/25 05:00 98.4 93 18 120/66 97 Room Air* 0 07/06/25 03:00 98.4 104 19 104/60 98 Room Air* 0 07/06/25 01:00 18 N/A Room Air 07/06/25 00:55 98.2 87 17 119/65 99 Room Air* 0 07/06/25 00:07 98.2 105 20 135/70 99 Room Air* 0 21 LABS: Hematology Labs: Test 07/06/25 06:17 07/05/25 21:15 Range/Units White Blood Count 10.8 4.8-10.8 K/uL Red Blood Count 3.72 L 4.50-6.20 MIL/uL Hemoglobin 10.9 L 14.0-18.0 g/dL Hematocrit 36.4 L 42-54 % Mean Corpuscular Volume 97.8 79-99 fL Mean Corpuscular Hemoglobin 29.3 27.0-33.0 pg Mean Corpuscular Hemoglobin Concent 29.9 L 32.0-36.0 g/dL Red Cell Distribution Width 17.2 H 11.0-15.5 % Platelet Count 172 # 130-400 K/uL Mean Platelet Volume 11.7 H 7.5-10.5 fL Immature Granulocyte % (Auto) 0.6 0-1 % Neutrophils (%) (Auto) 68.3 40.0-77.0 % Lymphocytes (%) (Auto) 20.6 L 21.0-51.0 % Monocytes (%) (Auto) 7.8 3.0-13.0 % Eosinophils (%) (Auto) 1.5 0.0-8.0 % Basophils (%) (Auto) 1.2 0.0-5.0 % Neutrophils # (Auto) 7.4 1.8-7.7 K/uL Lymphocytes # (Auto) 2.2 1.0-4.8 K/uL Monocytes # (Auto) 0.8 0.1-1.0 K/uL Eosinophils # (Auto) 0.16 0.00-0.70 K/uL Basophils # (Auto) 0.13 0.00-0.20 K/uL Absolute Immature Granulocyte (auto 0.06 0-1 K/uL Nucleated Red Blood Cells 0.0 0.0-0.19 % Red Blood Cell Morphology See comments Chemistry Labs: Test 07/06/25 06:17 07/05/25 21:15 Range/Units Sodium Level 138 136-145 mmol/L Potassium Level 4.8 3.5-5.1 mmol/L Chloride Level 99 L 101-111 mmol/L Carbon Dioxide Level 31 21-32 mmol/L Blood Urea Nitrogen 69 H 7-18 mg/dL Creatinine 5.2 H 0.5-1.3 mg/dL Glomerular Filtration Rate Calc 11 >90 mL/min Random Glucose 141 H 70-105 mg/dL Total Calcium 8.5 8.5-10.1 mg/dL Phosphorus Level 6.1 H 2.5-4.9 mg/dL Magnesium Level 2.80 H 1.80-2.40 mg/dL Troponin I High Sensitivity 328 *H 4-75 ng/L Total Creatine Kinase 49 # 21-232 U/L DIAGNOSTICS / RADIOLOGY RESULTS: [ ] [place] [address] IMAGING REPORT Signed PATIENT: PRIYA MENA MR#: [id number] : 1955 SEX: M AGE: 70 LOCATION: [facility] ORDER 53 STATUS: REG ER REPORT#: [id number] SERVICE 52 REASON: CHEST PAIN ORDERING PHYSICIAN: GURWINDER LANDIN MD PROCEDURE: CXR1VW - CHEST 1VW EXAM: CR Chest, 1 view CLINICAL HISTORY: Chest pain. COMPARISON: Chest radiograph dated 06/03/2025. FINDINGS: Poor inspiratory effort limits the optimal evaluation. The right side dual-lumen catheter tip overlies the right atrium. The lungs show no infiltrates or other acute findings. Mild subsegmental atelectasis around the left mid to lower zones. No pleural effusion or pneumothorax. The cardiomediastinal silhouette is within normal limits. Status poststernotomy. Left-sided cardiac pacemaker device in place. No acute osseous abnormality. IMPRESSION: No acute cardiopulmonary process is evident. Mild subsegmental atelectasis around the left mid to lower zones. A new finding. /[place] DICTATED BY: BRANDEN DAY Jr., MD DATE: 07/05/252357 ELECTRONICALLY SIGNED BY: BRANDEN DAY Jr., MD DATE: 07/05/252357 [place] [address] IMAGING REPORT Signed PATIENT: PRIYA MENA MR#: [id number] : 1955 SEX: M AGE: 70 LOCATION: [facility] ORDER 1 STATUS: ADM IN REPORT#: [id number] SERVICE 9 REASON: ASCITES ORDERING PHYSICIAN: NICOLASA HINES PROCEDURE: PARA ABD - US ABDOMINAL PARACENTESIS IR US ABDOMINAL PARACENTESIS IR REASON: ASCITES TECHNIQUE: Paracentesis was performed with ultrasound guidance. The puncture site was selected in the Right lower quadrant and overlying skin prepped and draped in a sterile fashion. 1% Xylocaine infiltration was performed. Catheter was placed in the fluid using trocar technique. 8.0 L were removed. Fluid sample was submitted for laboratory evaluation. The patient showed no evidence of complication during the procedure. Patient tolerated procedure well. IMPRESSION: 1. Ultrasound-guided paracentesis. DICTATED BY: MAURILIO SUTTON MD DATE: 07/06/251313 ELECTRONICALLY SIGNED BY: MAURILIO SUTTON MD DATE: 07/06/251316 PLAN NEURO: Minimize central acting medications as possible. Maintain fall precautions, adequate lighting during the day PULMONARY: Supplemental 02 as needed. Maintain aspiration precautions at all times CARDIOVASCULAR: Follow hemodynamics. Vital signs per facility protocol GI & NUTRITION: Continue with nutritional support. Continue stool softeners and laxatives as needed. KIDNEYS & ELECTROLYTES: Strict monitoring of intake, output and overall fluid balance. Avoid nephrotoxic medications to the extent possible. Medications to be dosed according to renal function. Monitor electrolytes and replace as needed ENDOCRINE: Maintain blood glucose between 100-180 at all times. Hypoglycemia protocol in place INFECTIOUS DISEASE: Trend temperature, WBC and procalcitonin level Follow cultures, deescalate antibiotics as soon as possible. Panculture if new onset fever ONCOLOGY/HEMATOLOGY/COAGULATION: Monitor for s/s of bleeding Monitor hemoglobin, coagulation studies as needed SKIN: Pressure ulcer prevention per facility protocol Specialty mattress ORTHO/REHAB: Continue PT/OT Prophylaxis: Continue GI and DVT prophylaxis Code Status: Full Resuscitation Disposition: TBD Critical care time This patient required multiple bedside visits to manage the patient, review blood gases, coordinate with respiratory, nurses, talk to the family members and discuss advanced directives. I personally spent [35] minutes of critical care time in treatment of this patient. This includes patient management, time at bedside, time reviewing tests, labs, appropriate images and studies, documentation, and patient care coordination. This time excludes separately billable procedures. ATTESTATION BY PHYSICIAN I reviewed the documentation, medical decision making, and treatment plan as noted by the mid-level provider above. I agree with the findings and plan of care. Nasim Carolina MD, NELLY J ARNP Jul 06, 2025 07:51 NASIM CAROLINA MD Jul 09, 2025 13:59
[2025-07-06 08:59] LABS: INR 1.02 (0.85-1.15)
[2025-07-06 09:30] LABS: APPEARANCE,URINE CLEAR (CLEAR); GLUCOSE, URINE (UA) NEGATIVE (NEGATIVE); LEUKOCYTE ESTERASE ,URINE NEGATIVE Leu/uL (NEGATIVE); NITRATE,URINE NEGATIVE (NEGATIVE); OCCULT BLOOD,URINE +- (TRACE) (NEGATIVE)
[2025-07-06 09:44] LABS: ADD UA MICROSCOPIC YES
[2025-07-06 09:48] LABS: SQUAMOUS EPITHELIAL CELL,UR Rare /HPF (0-2)
--- NOTE | 2025-07-06 11:34 | NUR ---
PT TO PARACENTESIS
--- NOTE | 2025-07-06 12:20 | NUR ---
ULTRASOUND GUIDED PARACENTESIS PROCEDURE PERFORMED BY DR. MAURILIO SUTTON. PUNCTURE SITE RLQ AND PATIENT TOLERATED PROCEDURE WELL. TOTAL REMOVED 8.0 LITERS OF CLOUDY, YELLOW ASCITES FLUID. END OF PROCEDURE AT 1205. CATHETER REMOVED AND DRESSING APPLIED- NO BLEEDING NOTED. REPORT GIVEN TO Geovany RICE RN AND PATIENT TRANSPORTED BACK TO ED-15 VIA STRETCHER WITH NO C/O PAIN.
--- NOTE | 2025-07-06 12:32 | NUR ---
REPORT POST PARA 8 L FUID REMOVED VIA RLQ.PUNCTURE SITE COVERED WITH 4X4 & OPSITE,NO LEAKAGE OR BLEEDING. VS: BP 120/63,HR 110, RR 18, SPO2 98%
--- NOTE | 2025-07-06 13:17 | HMCIMG ---
US ABDOMINAL PARACENTESIS IR REASON: ASCITES TECHNIQUE: Paracentesis was performed with ultrasound guidance. The puncture site was selected in the Right lower quadrant and overlying skin prepped and draped in a sterile fashion. 1% Xylocaine infiltration was performed. Catheter was placed in the fluid using trocar technique. 8.0 L were removed. Fluid sample was submitted for laboratory evaluation. The patient showed no evidence of complication during the procedure. Patient tolerated procedure well. IMPRESSION: 1. Ultrasound-guided paracentesis.
[2025-07-06] MEDS ORDERED: ALBUMIN HUMAN 25% IV ONE (13:30)
--- NOTE | 2025-07-06 13:52 | EKG ---
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
[2025-07-06] MEDS: ALBUMIN HUMAN 25% 200 ML IV ONE (15:28)
[2025-07-06] MEDS: ALBUMIN (HUMAN) 25% 100 ML IV ONE (15:29)
--- NOTE | 2025-07-06 16:23 | NUR ---
DCP: HOME Pt goes to [facility] for dialysis treatments MWF at 420am, transports. Pt lives at home with Coleen [phone]. assists pt as needed with ADLS, pt has a caneandrew, w/c. No provider or HH services. PCP is J Luis Richey and uses [facility] for rx needs. Couple deny need for SNF, want [place] at [place] Addendum: 07/06/25 at 1626 by SHANTAL SALAZAR Amended: Links added.
[2025-07-06] MEDS: 0.9%NACL 1000ML 1,000 ML IV SCH (19:13)
--- NOTE | 2025-07-06 19:31 | NUR ---
DIALYSIS DONE AT THIS TIME
--- NOTE | 2025-07-06 19:41 | NUR ---
PT CARE ASSUMED AT THIS TIME.
[2025-07-06] MEDS: EPOETIN ALFA-EPBX (NON-ESRD) 10,000 UNIT/ML VIAL SQ SCH (20:25)
--- NOTE | 2025-07-06 20:44 | NUR ---
REPORT GIVEN TO KIRK CLEMENS AT THIS TIME
[2025-07-07] VITALS (8 sets, daily range): BP systolic 101–126; BP diastolic 65–69; PULSE 72–113; RESP 17–20; TEMP 97.8–97.9; O2SAT 97–99
[2025-07-07 06:07] LABS: IMMATURE GRANULOCYTE ABSOLUTE 0.03 K/uL (0-1); NUCLEATED RED BLOOD CELLS 0.0 % (0.0-0.19); PLATELET COUNT (AUTO) 112 K/uL (130-400); RED BLOOD CELL COUNT(AUTO) 3.36 MIL/uL (4.50-6.20); RED CELL DISTRIBUTION WIDTH 16.9 % (11.0-15.5); WHITE BLOOD COUNT (AUTO) 7.5 K/uL (4.8-10.8)
[2025-07-07 06:26] LABS: ASPARTATE AMINOTRANSFERASE 27.0 U/L (10-37); CREATININE 4.3 mg/dL (0.5-1.3); GLOMERULAR FILTR. RATE CALC 14.0 mL/min (>90); GLUCOSE,RANDOM 84.0 mg/dL (70-105); PHOSPHORUS 5.0 mg/dL (2.5-4.9); SODIUM SERUM 137.0 mmol/L (136-145); TOTAL PROTEIN, SERUM 6.4 g/dL (6.0-8.3); UREA NITROGEN, BLOOD 51.0 mg/dL (7-18)
--- NOTE | 2025-07-07 10:03 | CONS ---
REFERRING PHYSICIAN: Dr. Fletcher. REASON FOR CONSULTATION: Coronary artery disease, volume overload, ESRD. HISTORY OF PRESENT ILLNESS: The patient is a 70-year-old male with history of diabetes mellitus and hypertension. He has a history of known cirrhosis requiring paracentesis. The patient with history of known coronary artery disease. He presented to the hospital with increasing shortness of breath and orthopnea. He has a history of noncompliance with his general medical care including his dialysis sessions. The patient was noted to have significant ascites status post large volume paracentesis. Laboratory values revealed an elevated creatinine as well as atrial fibrillation with rapid ventricular response and he is being seen for dialysis. PAST MEDICAL HISTORY: Diabetes mellitus, hypertension, coronary artery disease, cirrhosis. PAST SURGICAL HISTORY: Paracentesis, heart cath, AV access. SOCIAL HISTORY: She lives independently. There is no active tobacco use. FAMILY HISTORY: There is no Raynaud's in family. ALLERGIES: There are no allergies. MEDICATIONS: All noted. REVIEW OF SYSTEMS: GENERAL: He is feeling weak and tired. HEENT: No change in vision. No change in hearing. No shortness of breath. CARDIOVASCULAR: There is no current chest pain or palpitations. PULMONARY: He has chronic shortness of breath. GASTROINTESTINAL: As noted above. MUSCULOSKELETAL: Weakness. NEUROLOGIC: No seizures or focal deficits. PSYCHIATRIC: No history of hallucinations or psychosis. ENDOCRINE: Diabetes mellitus. No history of thyroid disease. HEME: History of anemia. No history of malignancy. PHYSICAL EXAMINATION: VITAL SIGNS: Blood pressure 154/68, pulse 100. He is afebrile. GENERAL: He is a chronically ill male lying in bed on the Medical Floor. HEENT: Head is atraumatic. Pupils are equal, round and reactive to light. Oropharynx is without exudate. Nares clear. NECK: There is no JVP. There is no thyromegaly. No masses. CARDIOVASCULAR: Regular. There is no S3 or S4 gallop. LUNGS: Coarse with equal thoracic movement. ABDOMEN: He has ascites. EXTREMITIES: Reveal no clubbing. No cyanosis. NEUROLOGICAL: He is awake. He is alert. He is oriented. SKIN: Reveals no rashes or nodules. BACK: There is no CVA tenderness. No back deformities. LABORATORY DATA: Sodium 138, potassium 4.8, BUN 69, creatinine 5.2, hemoglobin 10.9, hematocrit 36. IMPRESSION: * Cirrhosis status post large volume paracentesis. * Coronary artery disease with atrial fibrillation. * Mild dyspnea on hypertension. * End-stage renal disease. PLAN: The patient will proceed with dialysis on the day of his consultation, we will continue dialysis 3 times per week. The patient with a history of coronary artery disease and he is being seen by Cardiology. He will continue with Epogen for his anemia while on dialysis. He can continue with his phosphate binders and we will continue to follow him closely. The patient is to be seen by Cardiology. We will follow on the hospital. All labs can be repeated in the morning. Patient with multiple questions, all of which were answered. TID: [id number] RECEIPT: [id number]
--- NOTE | 2025-07-07 11:27 | DS ---
[facility] DISCHARGE SUMMARY Date Patient Seen: Jul 07, 2025 Time of Visit: 11:23 Supervising Physician: [ Dr Reyna Primary Care Physician: Dr Richey Outpatient Specialists: Lorena (Renal) , Abbe (Cardio) Inpatient Consults: [ ] PROBLEM LIST: Acute decompensated AFib with a RVR - stable Acute respiratory insufficiency POA- stable Hypertension, POA Hyperlipidemia, POA ESRD on HD via right upper chest HD catheter, status post for arm AV fistula, TTS, POA Chronic atrial fibrillation on Eliquis (last dose on 05/30/25) Chronic combined CHF, LVEF 25% per Echo on 01/2025, s s/p AICD in situ, POA Ascites with recent paracentesis on 06/01/25 - s/p paracentesis 8L removed 07/06/25 Anasarca, POA Electrolyte abnormality, POA DM type 2, with hyperglycemia, POA HOSPITAL COURSE: HPI (per admitting provider) 70-year-old male with past medical history of congestive heart failure, atrial fibrillation, on chronic anticoagulation, ESRD on HD via right upper chest does show, with dialysis schedule off Sunday, , and Sunday, hypertension, hyperlipidemia, DM type 2 who presented to ED via private vehicle with complaint of difficulty breathing and abdominal distention and found to have acute insufficiency, and possible large ascites,/anasarca. Apparently patient was recently discharged from this hospital last month at that time patient was found to have large ascites requiring paracentesis, per report they remove7 L of fluid. Patient again presented today with similar complaint, with associated abdominal distention and some difficulty breathing. Patient was also found to have rapid heart rate on initial evaluation in ED requiring Lopressor IV. Initial workup in ED showed unremarkable CBC, his chemistry consistent with chronic kidney disease, chest x-ray unrevealing for any acute infiltrates. On evaluation patient has some abdominal distention, and 3+ bilateral pitting e wilfrido. Apparently patient underwent hemodialysis yesterday but was not able to finish it due to rapid heart rate and blood pressure instability. His last full HD was as , but patient can not confirm how much fluid was removed. At present patient is currently hemodynamically stable, still AFib on the monitor, on room air with appropriate oxygen saturation, does not appear in distress, denies any headache, chest pain, abdominal pain, fever, or flu-like symptoms. 07/06 - Chart reviewed including all laboratory and imaging results. Patient assessed at bedside. He denies any chest pain shortness for breath at this time. He does report abdominal distention and firmness to abdomen. Patient will undergo IR paracentesis today. Hemodynamically stable. No major overnight events reported. Post paracentesis of 8 L out per IR. Was notified by the RN this patient's heart rate was 116 on the EKG AFib with a flutter with rate of 116 beats per minute. Administer Lopressor. Albumin 25% 100 mL given. We will continue patient with cardiac monitoring. Heart rate improving to 103 beats per minute. 07/07 - today patient is seen ambulating around the room accompanied by his . Patient with no signs of acute distress. Patient had a paracentesis performed yesterday with 8 L removed by IR. Patient's heart rate is currently stable. No acute changes reported overnight. Patient was evaluated by Nephrology and cleared for discharge. Patient has hemodialysis MWF. Patient has been advised to follow up with PCP in the next 1-2 days. Patient has been advised to continue hemodialysis scheduled. Patient has been advised to follow up with Cardiology in1 week. Patient verbalized understanding. Vital signs are stable. Labs are within normal limits. Medication reconciliation has been completed. Education regarding current diagnosis been provided to the patient. All questions have been answered. Patient to be discharged home. The patient was treated for the following problems: ACTIVE PROBLEM LIST FOR THE HOSPITALIZATION: Acute decompensated AFib with a RVR - stable Acute respiratory insufficiency POA- stable Hypertension, POA Hyperlipidemia, POA ESRD on HD via right upper chest HD catheter, status post for arm AV fistula, TTS, POA Chronic atrial fibrillation on Eliquis (last dose on 05/30/25) Chronic combined CHF, LVEF 25% per Echo on 01/2025, s s/p AICD in situ, POA Ascites with recent paracentesis on 06/01/25 - s/p paracentesis 8L removed 07/06/25 Anasarca, POA Electrolyte abnormality, POA DM type 2, with hyperglycemia, POA CHRONIC PROBLEMS: continue previous management per PCP unless otherwise indicated 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 PCP notified of patients admission, hospital course and discharge. Continued Medications: Atorvastatin Calcium (Lipitor) 80 Mg Tablet 80 MG PO DAILY, TAB Furosemide (Furosemide) 20 Mg Tablet 40 MG PO DAILY, TAB Hydralazine HCl (Hydralazine HCl) 50 Mg Tablet 1 TAB PO TID for 30 Days, #90 TAB 0 Refills Isosorbide Mononitrate (Isosorbide Mononitrate ER) 30 Mg Tab.er.24h 1 TAB PO DAILY for 30 Days, #30 TAB 0 Refills Metoprolol Succinate (Toprol Xl) 25 Mg Tab.er.24h 75 MG PO BID, #30 TAB 0 Refills Sevelamer Carbonate (Renvela Pwdr) 0.8 Gram Powder 800 MG PO TID, APPL PHYSICAL EXAM: GENERAL: alert, weak, awake oriented x 3, looks pale HEENT: EOMI, Sclera non icteric, moist mucosa NECK: Supple, no JVD, trachea midline LUNGS: Diminished bibasilar area HEART: AFib with a monitor. Normal S1 and S2, without murmurs ABD: Distended and tight abdomen. Bowel sounds present EXT: No clubbing cyanosis, 3+ pitting edema bilaterally NEURO: Alert and oriented to person, follows commands FOLLOW-UP: Follow-up with PCP in 2-3 days Follow up with Cardiology in 1 week Continue hemodialysis as scheduled MWF RECOMMENDATIONS: See Discharge Instructions This case was seen and discussed with my supervising physician. More than 30 minutes spent on discharge process, including evaluation of the patient, discussion with nursing staff, medication reconciliation and follow-up appointments ATTESTATION BY PHYSICIAN I have seen and examined the patient. I reviewed the documentation, medical decision making, and treatment plan as noted by the mid-level provider above. I agree with the findings and plan of care. Issac Reyna MD, ECTOR N NP Jul 07, 2025 11:27
--- NOTE | 2025-07-07 11:43 | CONS ---
NEPHROLOGY CONSULTATION REASON FOR CONSULTATION: The patient has renal failure, on dialysis and diabetes, hypertension, coronary artery disease. HISTORY OF PRESENT ILLNESS: A 70-year-old gentleman with underlying diabetes, hypertension, hyperlipidemia, coronary artery disease, cardiomyopathy, ICD placement. The patient has initiation of dialysis recently and multiple other comorbidities. The patient now has admitted and has underlying hypertension, hyperlipidemia, respiratory insufficiency, dialysis Sunday, , and Sunday. The patient has cardiomyopathy with ejection fraction of only 25%. No other associated findings. The patient is weak now. Past medical history is significant for the patient has another weakness present. The patient has CHF, atrial fibrillation, anticoagulation, and the patient has some abdominal distention and edema. The patient has recurrent episodes of atrial fibrillation. PAST MEDICAL HISTORY: Atrial fibrillation, end-stage renal disease, hypertension, hyperlipidemia, anemia, electrolyte abnormalities, and underlying type 2 diabetes. PAST SURGICAL HISTORY: As above with AV access, AICD placement, PermCath, and as per records. ALLERGIES: No known allergies. FAMILY HISTORY: Noncontributory. SOCIAL HISTORY: No smoking, alcohol, or drug abuse at this time. REVIEW OF SYSTEMS: CONSTITUTIONAL: Difficult to obtain but has weakness. No fever, chills, or rigors. HEENT: With no headache. No oral ulcers, sore throat, or difficulty swallowing. RESPIRATORY: With no cough, expectoration, hemoptysis, or pleuritic pain. CARDIOVASCULAR: Has orthopnea, PND, and shortness of breath. GASTROINTESTINAL: Negative for nausea, vomiting, or diarrhea. GENITOURINARY: Negative for hematuria. DERMATOLOGIC: No rashes, pruritus or skin lesions. ENDOCRINE: No polyuria, polydipsia, or polyphagia. PSYCHIATRIC: Review is negative for anxiety or depression. PHYSICAL EXAMINATION: GENERAL: Pale, sick looking, lying in bed. VITAL SIGNS: Blood pressure is 105/63. Pulse is 65. Respiratory rate is 20. HEENT: Head is atraumatic and normocephalic. Pupils are round and reactive. Sclerae are anicteric. Conjunctivae are not pale. Oral mucosa is not dry. NECK: Supple with no masses, bruits, or thyromegaly. Neck has no bruits. CHEST: Shows diminished at both bases. Prolonged respiration and crackles heard bilaterally. CARDIAC: Regular rhythm. No rub, no S3 or S4, no parasternal heave. ABDOMEN: No guarding or tenderness. Bowel sounds are free of fluid. EXTREMITIES: With no edema and no cyanosis or clubbing. BACK: No tenderness or back deformities. LABORATORY DATA: We have reviewed available labs in detail. Labs have shown hemoglobin is up to 10.9, creatinine is 5.2, BUN of 69. Old records reviewed. Urinalysis shown some proteinuria. IMAGING STUDIES: Imaging studies are personally reviewed. Paracentesis has been done before. X-ray of chest with increased marking. Old records have been reviewed and discussed with the other team members and external records reviewed. PROBLEMS: The patient is admitted with, 1. Atrial fibrillation and congestive heart failure, acute and chronic systolic. 2. The patient has underlying end-stage renal disease on hemodialysis. 3. Hyperlipidemia. 4. Hypertension. 5. Underlying history of electrolyte imbalance, diabetes with nephropathy. 6. The patient has anemia and multiple other comorbidities. PLAN: 1. Dialysis somewhat difficult because of cardiac issues. 2. The patient will get IV Dilaudid 0.5 mg q.6h for pain. 3. Dialysis on schedule. 4. Fluid restriction is advised. 5. Labs, x-rays were personally reviewed and interpreted. 6. Discussed with the other team physicians, reviewed the external records, and we will be doing followup labs. 7. Condition is guarded and critical. 8. Other nephrotoxic medications will be avoided and we will continue to monitor and discuss this with the other team physician. 9. Lab data was reviewed and old records reviewed. External records were also reviewed. Thank you for this patient. TID: [id number] RECEIPT: [id number]
[2025-07-07 15:59] LABS: HEPATITIS B CORE AB TOTAL Non-Reactive (Nonreactive)
--- NOTE | 2025-07-08 10:53 | PN ---
FOLLOWUP PROGRESS NOTE SUBJECTIVE: A 70-year-old male with history of diabetes mellitus and hypertension. He has a history of known coronary artery disease. The patient initially presented to the hospital and underwent large-volume paracentesis. The patient is feeling much improved. He also received dialysis while in the hospital and he is being seen as a followup visit for all of the above. REVIEW OF SYSTEMS: GENERAL: He is feeling much improved. HEENT: No change in vision. No change in hearing. CARDIOVASCULAR: No current chest pain or palpitations. PULMONARY: No shortness of breath. GASTROINTESTINAL: The patient is tolerating a diet. MUSCULOSKELETAL: Complaints of weakness. PHYSICAL EXAMINATION: VITAL SIGNS: Blood pressure 126/68. Pulse 70. He is afebrile. GENERAL: He is a chronically-ill male, elderly, lying in bed on the Medical Floor. HEENT: Head is atraumatic. Pupils are equal, round, and reactive to light. Oropharynx is without exudate. Nares are clear. NECK: There is no JVP. There is no thyromegaly. No masses. CARDIOVASCULAR: Regular. There is no S3 or S4 gallop. LUNGS: Coarse with equal thoracic movement. ABDOMEN: Soft, nondistended, and nontender. EXTREMITIES: Extremities reveal no clubbing or cyanosis. NEUROLOGICAL: He is awake, alert. LABORATORY DATA: Sodium 137, potassium 4.4, BUN 51, creatinine 4, hemoglobin 9.8, and hematocrit 31. IMPRESSION: Cirrhosis, status post paracentesis. Coronary artery disease. Hypertension. Anemia. End-stage renal disease.. PLAN: The patient is feeling improved status post large-volume paracentesis. The patient does follow up at the dialysis unit. The patient has a history of noncompliance and I did discuss that with the patient in detail. We will continue to follow closely. If the patient is discharged, he could follow up in the Dialysis Unit. TID: [id number] RECEIPT: [id number]
[2025-07-09 10:22] LABS: HEPATITIS B SURFACE ANTIBODY Negative (Reactive)
== END 2025-07-07 13:00 | disposition home or self-care (01) ==
LOC: EDH 20:48 → EDHIP 07-06 00:15 → UNDOADMOB 07-06 00:15 → INTOOBSV 07-06 00:15 → 3DH 07-06 20:44 → EDHIP 07-06 20:44 → 3DH 07-07 10:00
PROVIDERS: ADMIT Internal Medicine Critical Care Medicine; ATTEND Internal Medicine Critical Care Medicine
DX: I48.20 Chronic atrial fibrillation, unspecified (principal); R18.8 Other ascites; I48.92 Unspecified atrial flutter; I13.2 Hypertensive heart and chronic kidney disease with heart failure and with stage 5 chronic kidney disease, or end stage renal disease; E11.22 Type 2 diabetes mellitus with diabetic chronic kidney disease; I50.43 Acute on chronic combined systolic (congestive) and diastolic (congestive) heart failure; N18.6 End stage renal disease; K74.60 Unspecified cirrhosis of liver; J98.11 Atelectasis; I25.10 Atherosclerotic heart disease of native coronary artery without angina pectoris; E11.65 Type 2 diabetes mellitus with hyperglycemia; D63.1 Anemia in chronic kidney disease; E78.00 Pure hypercholesterolemia, unspecified; R14.0 Abdominal distension (gaseous); Z79.01 Long term (current) use of anticoagulants; Z86.73 Personal history of transient ischemic attack (TIA), and cerebral infarction without residual deficits; Z95.1 Presence of aortocoronary bypass graft; Z99.2 Dependence on renal dialysis; Z95.810 Presence of automatic (implantable) cardiac defibrillator; Z79.899 Other long term (current) drug therapy
CPT/HCPCS: 82550; 84484 ×2; 80048 ×2; 85025 ×3; 71045; 96374; 99291; 93005 ×2; 96372; 83735 ×2; 84100 ×2; 85610; 85730; 87086 ×2; 82948 ×4; 86706; 87340; 86704; 81001; 36415 ×3; 49083; 94664; 90935; 80053; 87186; J1815 ×2; G0378 ×3; J3490; J1644; P9046; Q5106; C1729; G0257

== ENCOUNTER → 2025-08-03 | Emergency (ER) | payer OTHER ==
[~2025-08-03] VITALS: Ht 165.1 cm; Wt 83.9 kg
[2025-08-03 11:39] VITALS: BP 122/76; PULSE 120; RESP 16; TEMP 97.8
--- NOTE | 2025-08-03 11:52 | ERN ---
ED Note History of Present Illness Stated Complaint: SOB X 3 DAYS, STATES NEEDS PARACENTESIS Chief Complaint: Shortness of Breath Time Seen by MD: 11:42 Dictation: PATIENT IS A 70-YEAR-OLD MALE WITH COMPLAINTS OF ABDOMINAL DISTENTION AND FEELING SHORT OF BREATH STATES HE IS SCHEDULED FOR PARACENTESIS TOMORROW AT 07:00 OUTPATIENT HOWEVER HE WANTS IT DONE TODAY. NO CHEST PAIN NO BACK PAIN NO FEVER NO CHILLS. HE ALSO MISSED HEMODIALYSIS THAT IT COME OVER AND HAVE LABS DONE FOR THE PARACENTESIS AND WOULD LIKE THAT DONE WELL. HE HAS A RIGHT CHEST PERMCATH, PATIENT OF DR. NIÑO [facility] Allergies: Coded Allergies: No Known Drug Allergies (Unverified Allergy, Unknown, 12/22/16) Home Meds Active Scripts Metoprolol Succinate (Toprol Xl) 25 Mg Tab.er.24h, 75 MG PO BID, #30 TAB 0 Refills Prov:MATHEW VALENTIN DIRECTOR OF TEACHER EDUCATION 12/04/22 Reported Medications Sevelamer Carbonate (Renvela Pwdr) 0.8 Gram Powder, 800 MG PO TID, APPL 06/03/25 Hydralazine HCl (Hydralazine HCl) 50 Mg Tablet, 1 TAB PO TID for 30 Days, #90 TAB 0 Refills 06/03/25 Isosorbide Mononitrate (Isosorbide Mononitrate ER) 30 Mg Tab.er.24h, 1 TAB PO DAILY for 30 Days, #30 TAB 0 Refills 02/09/25 Furosemide (Furosemide) 20 Mg Tablet, 40 MG PO DAILY, TAB 04/14/24 Atorvastatin Calcium (LIPITOR) 80 Mg Tablet, 80 MG PO DAILY, TAB 05/16/22 Past Medical History Past Medical History: A-Fib, CHF, CVA, Diabetes-Type II, High Cholesterol, Heart Disease, Hypertension, Liver Disease, Renal Disese, Renal Failure Surgical History: CABG, Pacer/AICD, Other, RAVA Surgical History Other: LT SHOULDER SX Family History: Negative RN Note Reviewed/Agreed w/PFSH: Yes Review of System Dictation CONSTITUTIONAL: NEGATIVE EXCEPT FOR HPI HEAD/FACE: NEGATIVE EXCEPT FOR HPI EENT: NEGATIVE EXCEPT FOR HPI RESPIRATORY: NEGATIVE EXCEPT FOR HPI SHORTNESS A BREATH GASTROINTESTINAL/ABDOMINAL: NEGATIVE EXCEPT FOR HPI ABDOMINAL DISTENTION GENITOURINARY: NEGATIVE EXCEPT FOR HPI MUSCULOSKELETAL: NEGATIVE EXCEPT FOR HPI INTEGUMENTARY: NEGATIVE EXCEPT FOR HPI NEUROLOGICAL/PSYCH: NEGATIVE EXCEPT FOR HPI HEMATOLOGIC/LYMPHATIC: NEGATIVE EXCEPT FOR HPI ALL SYSTEMS NEGATIVE, EXCEPT NOTED ABOVE. 13 POINT REVIEW OF SYSTEMS ASSESSED AND ALL NEGATIVE EXCEPT FOR ABOVE. Initial Vital Sign VS Vital Signs Date Time Temp Pulse Resp B/P (MAP) Pulse Ox O2 Delivery O2 Flow Rate FiO2 08/03/25 11:39 97.9 120 16 122/76 100 Room Air 0 Physical Exam Dictation VITAL SIGNS REVIEWED GENERAL APPEARANCE: ALERT, ORIENTED X 3, NO ACUTE DISTRESS, WELL DEVELOPED, NOURISHED. HEAD AND FACE: NON-TRAUMATIC. EYES: PERRL, PINK CONJUNCTIVAS, EYELID NO TRAUMA, ANTERIOR CHAMBER WITH ARCUS SENILIS. EARS: PINNAS INTACT AND NO SIGNS OF TRAUMA OR ERYTHEMA EAR CANALS CLEAR AND NO DISCHARGE TM NO ERYTHEMA NOSE: NO DISCHARGE, NO BLEEDING. OROPHARYNX: MOUTH NORMAL, TONGUE PINK, PHARYNX CLEAR,NO ERYTHEMA, TONSILS NO EXUDATES, NO ABSCESSES NOTED, MUCOUS MEMBRANE MOIST NECK: SUPPLE, NON-TENDER, NO THYROMEGALY, NO MASSES, NO JVD, NO BRUITS BREAST:DEFERRED CHEST:NO TENDERNESS, NO CREPITUS, NO PARADOXICAL MOVEMENT, NO RETRACTIONS RIGHT CHEST PERMCATH LUNGS:CLEAR, WELL-VENTILATED, SYMMETRIC, NO RALES, NO WHEEZING, NO RHONCHI, NO STRIDOR, GOOD BREATH SOUNDS BILATERALLY HEART: REGULAR RATE, REGULAR RHYTHM, NO MURMUR, NO GALLOPS VASCULAR: NO PERIPHERAL EDEMA, ABDOMEN: SOFT, POSITIVE BOWEL SOUNDS, ABDOMEN DISTENDED WITH A ASCITES. POSITIVE WAVE SIGN RECTAL: DEFERRED GENITAL: DEFERRED NEUROLOGICAL: NORMAL SPEECH, MOTOR FUNCTION INTACT, SENSORY FUNCTION INTACT MUSCULOSKELETAL: NECK NONTENDER, FULL RANGE OF MOTION, BACK NONTENDER, FULL RANGE OF MOTION, EXTREMITIES: NONTENDER, FULL RANGE OF MOTION SKIN: COLOR PINK, DRY, NO TURGOR, NO RASH, NO LACERATIONS, NO ABRASIONS, NO CONTUSIONS. LYMPHATIC: DEFERRED Results (Laboratory/Radiology) Labs Reviewed?: Yes EKG Comment: 1144/EKG ATRIAL FIBRILLATION WITH A RVR/VENTRICULAR RATE 114/CHRONIC CHANGES TO INFERIOR AND LATERAL LEADS. ED Course ED Course Orders Procedure Category Date Status Time 12 Lead Ekg Tracing- EKG 08/03/25 Complete Technical 11:42 Vital Signs Date Time Temp Pulse Resp B/P (MAP) Pulse Ox O2 Delivery O2 Flow Rate FiO2 08/03/25 11:39 97.9 120 16 122/76 100 Room Air 0 Medical Decision Making [facility] 1425/PATIENT LEFT WAITING ROOM AGAINST MEDICAL ADVICE INFORMED THE BUSINESS OFFICE HE WAS LEAVING DID NOT TALKED TO MEDICAL STAFF OR NURSES. DX & DISP Disposition: AMA Decision to Admit Time: 14:34 Departure Impression: Primary Impression: Atrial fibrillation with rapid ventricular response Additional Impression: Ascites Condition: Stable Referrals: ZACARIAS MOSELEY M.D. (PCP) Time of Disposition: 14:34 I have reviewed the case, and I agree with, Diagnosis and Plan KLARISSA GUIDO Aug 03, 2025 11:52 ANTONIA HART DO Aug 03, 2025 17:49
--- NOTE | 2025-08-03 12:23 | EKG ---
[facility] Test Date: 2025-08-03 Test Time: 11:44:26 Pat Name: PRIYA MENA Department: ED Room: Gender: M Cinder Snapper: [id number] : 1955 Requested By: ANTONIA HART Order Number: [id number] Reading MD: Lesa Guadalupe Measurements Intervals [place] Rate: 114 P: 0 OK: 0 QRS: -53 QRSD: 120 T: 127 QT: 364 QTc: 502 Interpretive Statements Atrial fibrillation with rapid ventricular response with V-paced complexes Left bundle branch block Compared to ECG 07/06/2025 13:46:54 No significant change Electronically Signed On 08-03-2025 20:13:03 CDT by Lesa Guadalupe Please click the below link to view image of tracing.
--- NOTE | 2025-08-03 13:28 | NUR ---
PT CALLED OUT X3 AND NO ANSWER. SEARCHED ER LOBBY, LOBBY RESTROOM, AND CALLED RADIOLOGY AND NO ANSWER.
== END ==
LOC: EDH 11:35
DX: I48.20 Chronic atrial fibrillation, unspecified (principal); R18.8 Other ascites; E11.9 Type 2 diabetes mellitus without complications; E78.00 Pure hypercholesterolemia, unspecified; I11.0 Hypertensive heart disease with heart failure; I50.9 Heart failure, unspecified; Z79.899 Other long term (current) drug therapy; Z86.73 Personal history of transient ischemic attack (TIA), and cerebral infarction without residual deficits; Z95.1 Presence of aortocoronary bypass graft; Z95.810 Presence of automatic (implantable) cardiac defibrillator
CPT/HCPCS: 93005; 99283

== ENCOUNTER 2025-08-04 06:48 | Day surgery (SDC) | payer OTHER ==
[2025-08-03 11:36] LABS: IMMATURE GRANULOCYTE ABSOLUTE 0.04 K/uL (0-1); NUCLEATED RED BLOOD CELLS 0.0 % (0.0-0.19); PLATELET COUNT (AUTO) 109 K/uL (130-400); RED BLOOD CELL COUNT(AUTO) 4.10 MIL/uL (4.50-6.20); RED CELL DISTRIBUTION WIDTH 17.1 % (11.0-15.5); WHITE BLOOD COUNT (AUTO) 8.6 K/uL (4.8-10.8)
[2025-08-03 11:39] LABS: INR 1.05 (0.85-1.15)
[2025-08-03 11:44] LABS: CREATININE 5.9 mg/dL (0.5-1.3); GLOMERULAR FILTR. RATE CALC 10.0 mL/min (>90); GLUCOSE,RANDOM 244.0 mg/dL (70-105); SODIUM SERUM 139.0 mmol/L (136-145); UREA NITROGEN, BLOOD 57.0 mg/dL (7-18)
[2025-08-04 08:30] VITALS: BP 110/72; PULSE 89; RESP 18; TEMP 99.5
[2025-08-04] MEDS: 0.9% NACL 500ML IV.SOLN 500 ML IV SCH (09:42)
[2025-08-04 14:30] VITALS: BP 107/79; PULSE 97; RESP 15; TEMP 97.9
[2025-08-04] MEDS ORDERED: IOHEXOL-350 50ML VIAL IV ONE (15:29)
[2025-08-04] MEDS ORDERED: LIDOCAINE HCL 400MG/20ML VIAL ONE (15:29)
[2025-08-04] MEDS ORDERED: MIDAZOLAM HCL 1 MG/ML 2ML VIAL ONE (15:39)
[2025-08-04] MEDS ORDERED: HEParin-NS 1,000 UNIT/500 ML 500 ML IV ONE (15:49)
[2025-08-04] MEDS ORDERED: LIDOCAINE HCL 1% MDV 50ML VIAL ONE (16:01)
--- NOTE | 2025-08-04 16:28 | OP ---
DATE OF PROCEDURE: 08/04/2025 STUDY: Placement of indwelling peritoneal catheter, i.e. Pascual catheter placement under fluoroscopy and ultrasound guidance. In the right lower abdomen, there is a pocket seen for placement of the peritoneal Pascual catheter. This was localized and prepped and draped in the usual sterile technique. 1% Xylocaine was used for local anesthetic. An 18-gauge needle was introduced in the peritoneum and angiographic wire was advanced. A tunneling was performed about 6 cm from the insertion site in the right lower quadrant and the catheter was tunneled. It is a pleural drainage catheter from [place]. The catheter was placed at the insertion site and then the tract was dilated in the abdomen using 8, 12-Greek, and 12-Greek dilator. A 16-Greek peel-away sheath was introduced. The tunneled pleural catheter was sized to the right side under fluoroscopy and introduced into the peritoneum through the peel-away sheath. The skin was closed with 3-0 Vicryl and the catheter was anchored with 3-0 silk. There is not a large amount of ascites seen in the abdomen. IMPRESSION: Percutaneous ultrasound and fluoroscopy-guided placement of a peritoneal indwelling catheter, i.e. a Pascual catheter, which appears to be in satisfactory position and can be used to drain ascites. TID: [id number] RECEIPT: [id number]
[2025-08-04 16:50] VITALS: BP 114/72; PULSE 99; RESP 14; TEMP 97.4
[2025-08-04 17:05] VITALS: BP 118/70; PULSE 103; RESP 15
[2025-08-04 17:20] VITALS: BP 122/86; PULSE 101; RESP 19
[2025-08-04 17:35] VITALS: BP 105/76; PULSE 110; RESP 18
--- NOTE | 2025-08-04 17:39 | NUR ---
Full and complete discharge instructions given to Patient and Family both verbally and in writing. Explained Surgical procedure precautions and follow up. ASEPT drainage system sites x 2 clean dry and intact. No evidence of bleeding, bruising or hematoma. Drain taped securely to abdominal wall. Provided ASEPT packet and card to . All questions answered. PIV removed with catheter tip intact. Family at bedside appearing supportive. W/C to POV with Family to home
--- NOTE | 2025-08-05 09:55 | HMCIMG ---
Ascites SCAN History: Ultrasound guidance for placement of a Victoria catheter FINDINGS: Right lower quadrant ascites was localized for placement of a Victoria catheter IMPRESSION: As above
== END 2025-08-04 17:41 | disposition home or self-care (01) ==
LOC: DAH 06:48
PROVIDERS: ATTEND Family Medicine
DX: K74.60 Unspecified cirrhosis of liver (principal); I13.2 Hypertensive heart and chronic kidney disease with heart failure and with stage 5 chronic kidney disease, or end stage renal disease; E11.22 Type 2 diabetes mellitus with diabetic chronic kidney disease; N18.6 End stage renal disease; I50.20 Unspecified systolic (congestive) heart failure; I48.92 Unspecified atrial flutter; E78.5 Hyperlipidemia, unspecified; E11.40 Type 2 diabetes mellitus with diabetic neuropathy, unspecified; Z99.2 Dependence on renal dialysis; Z86.2 Personal history of diseases of the blood and blood-forming organs and certain disorders involving the immune mechanism; Z82.49 Family history of ischemic heart disease and other diseases of the circulatory system; Z88.8 Allergy status to other drugs, medicaments and biological substances; Z79.899 Other long term (current) drug therapy; Z98.890 Other specified postprocedural states
CPT/HCPCS: 80048; 85025; 85610; 85730; 36415; 49418; 99156; 99157; 82948; A7048; J3010; J3490 ×2; J2250; J1644; Q9967; A4215; A4222; A4221; A4663; A4216; A4606; A4223 ×3; 10030; 75989